=== PATIENT | male | born 1940 | race Hispanic/Latino ===

== ENCOUNTER 2016-05-19 04:13 | Emergency (ER) | payer MEDICARE ==
[2016-05-19 06:10] VITALS: O2SAT 94
[2016-05-19 06:38] VITALS: TEMP 99.7
--- NOTE | 2016-05-19 06:39 | ED.PDOC ---
History of Present Illness - General Chief Complaint: Abdominal Pain Stated Complaint: VOMITING Time Seen by Provider: 05/19/16 06:05 Source: patient, RN notes reviewed, Vital Signs reviewed, family Exam Limitations: other - poor historians - History of Present Illness Initial Comments: This 76 y/o male has complaints of abdominal pain with nausea and vomiting x 1 day. The family has had a stomach bug going around with vomiting and diarrhea. I get conflicting stories from he and his family. He has some abdominal pain which is generalized and mild. He reports that his heartbeat was fast and he was worried about it. He has a history of afib. He has vomited x 1 today. He has been sleeping more than usual. He denies chest pain or shortness of breath. Timing/Duration: 24 hours Severity: mild Improving Factors: nothing Worsening Factors: eating Associated Symptoms: loss of appetite, malaise, nausea/vomiting, weakness Allergies/Adverse Reactions: Allergies Sulfa Drugs Allergy (Unknown, Verified 10/15/15 11:04) Home Medications: Ambulatory Orders Amantadine HCl 100 mg PO BID 07/30/12 Carbidopa/Levodopa 50/200 Cr [Sinemet Cr] 1 tab PO BID 07/30/12 Furosemide 40 mg PO DAILY 07/30/12 Omeprazole 20 mg PO BEDTIME 07/30/12 Potassium Chloride Tab [K-Dur] 10 meq PO DAILY 07/30/12 Saw [place] (Serenoa Repens) [Saw [place]] 160 mg PO BEDTIME 07/30/12 Tamsulosin [Flomax] 0.4 mg PO DAILY 07/30/12 Finasteride [Proscar] 5 mg PO BEDTIME 01/20/13 Dexlansoprazole [Dexilant] 60 mg PO DAILY 04/29/15 ALPRAZolam [Xanax] 1 mg PO BID 10/15/15 Aspirin [Aspirin Adult Low Dose] 81 mg PO BEDTIME 10/15/15 Propranolol LA [Inderal LA] 20 mg PO BEDTIME 03/09/16 Acetaminophen W/ Codeine [Tylenol W/ CODEINE #3] 1 ea PO QID PRN 05/19/16 Ondansetron [Zofran Odt] 4 mg PO Q8H PRN #10 tab 05/19/16 Temazepam 7.5 mg PO 05/19/16 Review of Systems - Review of Systems Constitutional: States: malaise, weakness EENTM: States: no symptoms reported Respiratory: States: no symptoms reported Cardiology: States: palpitations Gastrointestinal/Abdominal: States: abdominal pain, nausea, vomiting Genitourinary: States: hematuria - Not currently Musculoskeletal: States: muscle pain Skin: States: no symptoms reported Neurological: States: tremors, weakness Endocrine: States: no symptoms reported Hematologic/Lymphatic: States: no symptoms reported All other Systems: Reviewed and Negative Past Medical History (General) - Patient Medical History Hx Seizures: No Hx Stroke: No Hx Asthma: No Hx of COPD: Yes Hx Cardiac Disorders: Yes - A-fib Hx Congestive Heart Failure: No Hx Pacemaker: No Hx Hypertension: No Hx Diabetes: No Hx Gastroesophageal Reflux: Yes Hx Cancer: No Hx of HIV: No Hx Hepatitis C: No Hx MRSA: No Surgical History: appendectomy, cholecystectomy, other - Vaccination History Hx Tetanus, Diphtheria Vaccination: No Hx Influenza Vaccination: No Hx Pneumococcal Vaccination: Yes - Social History Hx Tobacco Use: Yes Hx Chewing Tobacco Use: No Hx Alcohol Use: No Hx Substance Use: No Hx Depression: No Hx Physical Abuse: No Hx Emotional Abuse: No Hx Suspected Abuse: No Family Medical History - Family History Father Family History: Unknown Living Status: Cause of : pneumonia Hx Family;Other: Parkinson's Physical Exam - Physical Exam General Appearance: Alert, Comfortable, No apparent distress Eye Exam: bilateral normal Ears, Nose, Throat: hearing grossly normal, normal ENT inspection Respiratory: lungs clear, normal breath sounds, no respiratory distress, no accessory muscle use Cardiovascular/Chest: no edema, no murmur, irregularly irregular Gastrointestinal/Abdominal: normal bowel sounds, non tender, soft, no organomegaly Neurologic: alert, normal mood/affect, oriented x 3 Skin Exam: pallor Progress - Progress Progress: 05/19/16 07:13 Patient remained stable throughout his stay. His hemoglobin has decreased, however it is not currently at a level that requires transfusion. Warnings given to he and his family to return for any rapid heart rate or dizziness, or any worsening of symptoms, for re-evaluation. Patient is to follow up with his PCP in one day. - Results/Orders Results/Orders: 05/19/16 05/19/16 05/19/16 04:24 05:21 06:00 Temperature 99.4 F Pulse Rate [LA] 98 H 96 H 91 H Respiratory 20 16 16 Rate Blood Pressure 142/86 151/83 162/76 [LA] O2 Sat by Pulse 98 96 94 L Oximetry 05/19/16 06:30 Temperature 99.7 F H Pulse Rate [LA] 89 Respiratory 16 Rate Blood Pressure 153/78 [LA] O2 Sat by Pulse Oximetry 05/19/16 06:45 EKG STAT 05/19/16 06:56 INFLUENZA A & B BY PCR Stat Laboratory Results WBC 4.6 K/mm3 (4.8-10.8) L 05/19/16 04:15 RBC 3.60 M/mm3 (4.70-6.10) L 05/19/16 04:15 Hgb 8.6 gm/dL (14.0-18.0) L 05/19/16 04:15 Hct 27.6 % (42.0-52.0) L 05/19/16 04:15 MCV 76.6 fl (80.0-94.0) L 05/19/16 04:15 MCH 24.0 pg (27.0-31.0) L 05/19/16 04:15 MCHC 31.3 g/dL (33.0-37.0) L 05/19/16 04:15 RDW 15.7 % (11.5-14.5) H 05/19/16 04:15 Plt Count 256 K/mm3 (130-400) 05/19/16 04:15 MPV 8.2 fl (7.40-10.4) 05/19/16 04:15 Absolute Neuts (auto) 3.80 K/uL (1.8-6.8) 05/19/16 04:15 Absolute Lymphs (auto) 0.40 K/uL (1.0-3.4) L 05/19/16 04:15 Absolute Monos (auto) 0.20 K/uL (0.2-0.8) 05/19/16 04:15 Absolute Eos (auto) 0.10 K/uL (0.0-0.4) 05/19/16 04:15 Absolute Basos (auto) 0.00 K/uL (0.0-0.1) 05/19/16 04:15 Neutrophils % 82.2 % (42.0-78.0) H 05/19/16 04:15 Lymphocytes % 9.6 % (20.0-50.0) L 05/19/16 04:15 Monocytes % 5.4 % (2.0-9.0) 05/19/16 04:15 Eosinophils % 2.3 % (1.0-5.0) 05/19/16 04:15 Basophils % 0.5 % (0.0-2.0) 05/19/16 04:15 Normal RBC Morphology 2+hypochromia 1+aniso 1+microcytosis 1+poikilocytosis 05/19/16 04:15 Normal RBC Morphology 2+hypochromia 1+aniso 1+microcytosis 1+poikilocytosis 05/19/16 04:15 Normal RBC Morphology 2+hypochromia 1+aniso 1+microcytosis 1+poikilocytosis 05/19/16 04:15 Normal RBC Morphology 2+hypochromia 1+aniso 1+microcytosis 1+poikilocytosis 05/19/16 04:15 Sodium 142 mmol/L (135-145) 05/19/16 04:15 Potassium 3.8 mmol/L (3.6-5.0) 05/19/16 04:15 Chloride 109 mmol/L (101-111) 05/19/16 04:15 Carbon Dioxide 24 mmol/L (21-31) 05/19/16 04:15 Anion Gap 12.8 (12-18) 05/19/16 04:15 BUN 21 mg/dL (7-18) H 05/19/16 04:15 Creatinine 1.23 mg/dL (0.6-1.3) 05/19/16 04:15 BUN/Creatinine Ratio 17.1 (10-20) 05/19/16 04:15 Random Glucose 115 mg/dL (70-105) H 05/19/16 04:15 Serum Osmolality 287.0 mOsm/L (275-295) 05/19/16 04:15 Calcium 9.0 mg/dL (8.4-10.2) 05/19/16 04:15 Total Bilirubin 0.7 mg/dL (0.2-1.0) 05/19/16 04:15 AST 18 IU/L (10-42) 05/19/16 04:15 ALT 13 IU/L (10-60) 05/19/16 04:15 Alkaline Phosphatase 146 IU/L (42-121) H 05/19/16 04:15 Serum Total Protein 7.6 gm/dL (6.4-8.2) 05/19/16 04:15 Albumin 4.0 g/dl (3.2-5.5) 05/19/16 04:15 Globulin 3.6 gm/dL (2.3-3.5) H 05/19/16 04:15 Albumin/Globulin Ratio 1.1 (1.1-1.9) 05/19/16 04:15 Lipase 27 U/L (22-51) 05/19/16 04:15 Urine Color Yellow (Yellow) 05/19/16 05:10 Urine Appearance Clear (Clear) 05/19/16 05:10 Urine pH 6.0 (4.5-7.8) 05/19/16 05:10 Ur Specific [place] 1.020 (1.005-1.030) 05/19/16 05:10 Urine Protein Trace mg/dL 05/19/16 05:10 Urine Glucose (UA) Negative mg/dL (Negative) 05/19/16 05:10 Urine Ketones Negative mg/dL (NEGATIVE) 05/19/16 05:10 Urine Blood Trace-intact (Negative) H 05/19/16 05:10 Urine Nitrite Negative 05/19/16 05:10 Urine Bilirubin Negative (NEGATIVE) 05/19/16 05:10 Urine Urobilinogen 0.2 mg/dL (0.2-1.0) 05/19/16 05:10 Ur Leukocyte Esterase Negative (Negative) 05/19/16 05:10 Urine RBC 1-3 /hpf 05/19/16 05:10 Urine WBC 0-1 /hpf 05/19/16 05:10 Ur Epithelial Cells 0-1 /hpf 05/19/16 05:10 Urine Bacteria Rare 05/19/16 05:10 - EKG/XRAY/CT EKG: Atrial, Fibrillation, no ST T wave changes, Changed from - 01/15/2016 - now afib, rate controlled Comments: 96BPM, PVCs, NML axis, Interpretation: afib, rate controlled XRAY: abdomen Xray Comments: no evidence of obstruction Departure - Departure Clinical Impression: Gastroenteritis Abdominal pain Qualifiers: Abdominal location: generalized Qualifier Code: (R10.84) Generalized abdominal pain Anemia Qualifiers: Anemia type: unspecified type Qualifier Code: (D64.9) Anemia, unspecified Time of Disposition: 07:16 Disposition: Discharge to Home or Self Care Condition: Good Departure Forms: ED Discharge - Pt. Copy, Patient Portal Self Enrollment Instructions: DI for Abdominal Pain-Adult, DI for Vomiting -- Adult, Nausea and Vomiting-Adult, Anemia Diet: bland diet Referrals: Michael Kemp MD [Primary Care Provider] - 1-2 Days (Patient with Hb of 8.6) Prescriptions: Ondansetron [Zofran Odt] 4 mg PO Q8H PRN #10 tab PRN Reason: Nausea/Vomiting Home Medications: Ambulatory Orders Amantadine HCl 100 mg PO BID 07/30/12 Carbidopa/Levodopa 50/200 Cr [Sinemet Cr] 1 tab PO BID 07/30/12 Furosemide 40 mg PO DAILY 07/30/12 Omeprazole 20 mg PO BEDTIME 07/30/12 Potassium Chloride Tab [K-Dur] 10 meq PO DAILY 07/30/12 Saw [place] (Serenoa Repens) [Saw [place]] 160 mg PO BEDTIME 07/30/12 Tamsulosin [Flomax] 0.4 mg PO DAILY 07/30/12 Finasteride [Proscar] 5 mg PO BEDTIME 01/20/13 Dexlansoprazole [Dexilant] 60 mg PO DAILY 04/29/15 ALPRAZolam [Xanax] 1 mg PO BID 10/15/15 Aspirin [Aspirin Adult Low Dose] 81 mg PO BEDTIME 10/15/15 Propranolol LA [Inderal LA] 20 mg PO BEDTIME 03/09/16 Acetaminophen W/ Codeine [Tylenol W/ CODEINE #3] 1 ea PO QID PRN 05/19/16 Ondansetron [Zofran Odt] 4 mg PO Q8H PRN #10 tab 05/19/16 Temazepam 7.5 mg PO 05/19/16 Additional Instructions: Follow up for any worsening of symptoms.
[2016-05-19] MEDS ORDERED: ACETAMINOPHEN W/COD #3 TAB 1 EA TAB PO ONE ×2 (06:41)
[2016-05-19 07:44] VITALS: BP 146/72
--- NOTE | 2016-05-23 14:09 | RAD ---
Clinical history: MAIN.Sex: Male.: 1940. Technique: Supine view of the abdomen. Findings: There is distention of the stomach. There are no dilated loops of small bowel. Cholecystectomy clips are noted. There is no opaque calculus. There are changes of a left hip arthroplasty. Impression: Nonobstructing bowel gas pattern. Electronically signed by: Giuliano Tabor MD 05/19/2016 5:58 AM MICROBIAL SPECIALIST
== END 2016-05-19 07:44 | disposition home or self-care (01) ==
LOC: ER 04:13
DX: K52.9 Noninfective gastroenteritis and colitis, unspecified (principal); D64.9 Anemia, unspecified; Z88.2 Allergy status to sulfonamides; J44.9 Chronic obstructive pulmonary disease, unspecified; I48.91 Unspecified atrial fibrillation; K21.9 Gastro-esophageal reflux disease without esophagitis; Z79.82 Long term (current) use of aspirin; Z79.899 Other long term (current) drug therapy; Z87.891 Personal history of nicotine dependence

== ENCOUNTER 2016-05-21 16:45 | Observation (INO) | payer MEDICARE ==
--- NOTE | 2016-05-21 16:53 | HP ---
SUPERVISING PHYSICIAN: Rigo Powell MD CHIEF COMPLAINT: Weakness. HISTORY OF PRESENT ILLNESS: Mr. Landon is a 76-year-old, male patient who initially presented to the Emergency Department on 05/19/16 with complaints of abdominal pain and nausea. He had a workup in the Emergency Department and his hemoglobin and hematocrit at that time was found to be 8.6 and 27.6. He was discharged home with diagnosis of gastroenteritis with no new prescriptions and told to followup with his primary care physician. Today, he was seen in followup in the clinic. Repeat laboratory was done. Hemoglobin and hematocrit then showed 7.3 and 24.9. He also had an H. pylori breath test done that was positive. His last upper GI series was done in [address] Georges and last colonoscopy was noted to be in 2010. His hemoglobin was reported as normal in November and he had normal colonoscopy on 01/24/16 and was started on Dexilant. He does have a history of atrial fibrillation that is controlled and just saw his assistant to the director, Dr. Sagastume, today. He was on warfarin in the past, but it had been discontinued. Currently, he is on no anticoagulation other than low dose aspirin. An electrocardiogram done by Dr. Sagastume in the clinic today showed atrial fibrillation with controlled ventricular rate of 63. The patient was felt to be clinically stable, but the anemia was of concern. He was then reevaluated by Dr. Kemp. The findings were called to Dr. Georges, his limousine driver, who suggested the patient be admitted to the hospital and transfuse 2 units of packed red blood cells and made NPO tonight with anticipation of doing an upper GI series in the morning. The patient was directly admitted to the hospital in stable condition. PAST MEDICAL HISTORY: 1. Hypertension. 2. Parkinson's disease. 3. Insomnia. 4. Anemia. 5. Paroxysmal atrial fibrillation, currently only on aspirin. 6. Hyperlipidemia. 7. Chronic obstructive pulmonary disease. 8. Coronary atherosclerotic disease. PAST SURGICAL HISTORY: 1. Appendectomy. 2. Cholecystectomy. 3. Fusion of L5 through S1. 4. Left hip fracture repair. 5. Last EGD was 01/24/16, normal, performed by Dr. Georges. HOME MEDICATIONS: 1. Temazepam 7.5 mg. 2. Flomax 0.4 mg daily. 3. Saw [place] 160 mg at bedtime. 4. Inderal 20 mg at bedtime. 5. Potassium chloride 10 mEq daily. 6. Zofran 4 mg q.8h. p.r.n. 7. Omeprazole 20 mg daily at bedtime. 8. Lasix 40 mg daily. 9. Proscar 5 mg at bedtime. 10. Dexilant 60 mg daily. 11. Sinemet CR 1 tablet twice daily. 12. Aspirin 81 mg at bedtime. 13. Amantadine HCL 100 mg twice daily. 14. Tylenol with codeine No 3 1 q.i.d. p.r.n. for pain. 15. Xanax 1 mg twice daily. ALLERGIES: SULFA DRUGS. FAMILY HISTORY: Noncontributory. SOCIAL HISTORY: The patient is retired, former [employer]. He is . He has 5 children. He has never smoked. He denies any alcohol or illicit drug use. REVIEW OF SYSTEMS: CONSTITUTIONAL: Denies any fevers, chills, or weight change. HEENT: Negative for ear pain, frequent rhinorrhea, sore throat. CARDIOVASCULAR: Denies chest pain, orthopnea, or pedal edema. RESPIRATORY: Negative for recent cough or dyspnea. GASTROINTESTINAL: Denies abdominal pain, constipation, diarrhea, or nausea, but was seen 2 days ago for nausea, vomiting and abdominal pain. MUSCULOSKELETAL: Positive for chronic back pain. NEUROLOGIC: Negative for ataxia, headaches. He does have a tremor related to Parkinson's disease. PHYSICAL EXAMINATION: VITAL SIGNS: Temperature 97.8. Pulse 68. Blood pressure 133/70. Respirations 20. O2 saturation 99% on room air. Admission weight 79.5 kg. GENERAL: The patient is alert, in no acute distress, appears well-nourished, well-hydrated. HEENT: Tympanic membranes clear bilaterally. Oropharynx is pink, moist without any lesions. NECK: No jugular venous distention noted. CHEST: Lungs clear to auscultation bilaterally without any rhonchi, wheezes, or rales. CARDIOVASCULAR: Slightly irregular rate and rhythm without any appreciable murmurs, gallops, or rubs. ABDOMEN: Soft, nontender. Hyperactive bowel sounds. NEUROLOGIC: He does have a tremor secondary to Parkinson's, but cranial nerves II-XII are grossly intact. Facial features are symmetrical. Extraocular movements are within normal limits. There is no nystagmus. LABORATORY: White count 3.1, hemoglobin 7.4, hematocrit 24.0, platelet count 215,000, differential with no left shift. Chemistries show sodium 141, potassium 4.1, BUN 23, creatinine 1.25, glucose 99. ALT and AST both within normal limits. Alkaline phosphatase elevated at 125. BNP elevated at 256. H. pylori breath test positive performed in the clinic lab. Occult blood pending. RADIOLOGY: No current radiographic studies available. ASSESSMENT: 1. Anemia with acute loss with the patient being hemodynamically stable with a positive Helicobacter pylori breath test. Unknown etiology. 2. Parkinson's disease. 3. Hypertension. 4. History of insomnia. PLAN: The patient was directly admitted to the hospital and placed in observation to have 2 units of packed red blood cells transfused tonight. He will have Lasix 20 mg after the second unit and he was premedicated with Benadryl and Tylenol. He will be made NPO tonight. He will see Dr. Georges in the morning for evaluation and consultation. Anticipate length of stay to be 1 to 2 days. Until then, we will continue to monitor the patient closely and treat appropriately. #[id number] [facility]
[2016-05-21] MEDS ORDERED: ACETAMINOPHEN 325 MG TAB PO PRN (17:47)
[2016-05-21] MEDS ORDERED: SODIUM CHLORIDE 0.9% (FLUSH) 10 ML SYG IV PRN (17:47)
[2016-05-21] MEDS ORDERED: FUROSEMIDE INJ 20 MG/2 ML VIAL IV ONE (17:52)
[2016-05-21] MEDS ORDERED: diphenhydrAMINE HCL 50 MG/ML VIAL IV ONE (17:52)
[2016-05-21] MEDS ORDERED: ACETAMINOPHEN 325 MG TAB PO ONE (17:52)
[2016-05-21] MEDS ORDERED: SODIUM CHLORIDE 0.9% 500ML 500 ML IVS SCH (18:00)
[2016-05-21] MEDS ORDERED: IV SET AND CAP CHANGE INJ INJ SCH (18:00)
[2016-05-21] MEDS ORDERED: ACETAMINOPHEN W/COD #3 TAB 1 EA TAB PO PRN (23:51)
--- NOTE | 2016-05-22 00:01 | PCM.CORE ---
Physician DVT/VTE - Contraindications Medication Contraindication: Medical Contraindication - Possible GI Bleed - Nurse DVT Assessment & Total Each Risk Factor Represents 2 Points: Age 60-74 Each Risk Factor is 1 Point: Varicose Veins/Edema Legs, Obesity (BMI >25) DVT Assessment Score: 4 - 5 or more Very High Risk Treatments: Early Ambulation *, Sequential Compression Device
[2016-05-22] MEDS ORDERED: LACTATED RINGERS 1,000 ML ONE (10:21)
--- NOTE | 2016-05-22 10:54 | OP ---
DATE OF PROCEDURE: 05/22/16 PREOPERATIVE DIAGNOSIS: 1. Acute anemia, hemoglobin 7, possible active GI blood loss. POSTOPERATIVE DIAGNOSIS: 1. Normal upper GI tract. No blood seen up to the third part of the duodenum. PROCEDURE: 1. Esophagogastroduodenoscopy. SURGEON: Farhat Georges MD. SEDATION: Monitored anesthesia care. DESCRIPTION OF PROCEDURE: This gentleman has advanced Parkinson's disease. With the patient under sedation, the endoscope was introduced. The posterior pharynx appeared normal. Esophagus unremarkable. Normal EG junction. No hiatal hernia. The esophagus showed no evidence of esophageal varices, esophagitis, or ulceration. Normal cardia, fundus, body, antrum, and pylorus. No evidence of gastritis, angiodysplasia or ulcer. No blood seen in the entire stomach. The first, second and third part of the duodenum are all normal. No evidence of duodenal ulcer disease or any celiac disease. IMPRESSION: 1. Totally normal upper endoscopy. No sign of bleeding identified. 2. Source of blood loss or anemia not related to any upper GI source of bleeding. #[id number] cc: MD Farhat Graves MD MTDD
[2016-05-22 11:14] VITALS: TEMP 98
[2016-05-22] MEDS ORDERED: PROPOFOL 200 MG/20 ML VIAL IV ONE (12:00)
[2016-05-22] MEDS ORDERED: SODIUM CHLORIDE 0.9% 10 ML VIAL INJ PRN (12:12)
--- NOTE | 2016-05-22 12:39 | CT ---
EXAM DESCRIPTION: CT ABDOMEN PELVIS WITHOUT IV CONTRAST CLINICAL HISTORY: poss GI bleed, anemia COMPARISON: December 21, 2013 TECHNIQUE: CT of the abdomen and Pelvis was performed without IV contrast. Oral contrast was given prior to this exam period FINDINGS: There are trace bilateral pleural effusions. No pneumoperitoneum, ascites or adenopathy. There are mural calcifications in the abdominal aorta without aneurysm period there is no hiatal hernia period no gastric wall thickening is seen period there are no dilated small bowel loops. Does appear wall and fold thickening involving a short segment of the jejunum just distal to the ligament of Treitz, but this may be at least partially related to suboptimal distention period otherwise, visualized small bowel loops are unremarkable. The terminal ileum and ileocecal junction are unremarkable. There is no colonic wall thickening or pericolonic inflammation period the prostate is at the upper limits of normal size. There is no bladder wall thickening. The gallbladder is surgically absent. The liver, spleen, pancreas, adrenals and kidneys are unremarkable for noncontrast technique period streak artifact from patient's left hip prosthesis slightly limits evaluation of the left side of the pelvis period there is no suspicious bone lesion. Degenerative and postoperative changes are noted in the lumbar spine at multiple levels. There is a tiny bone island in the left sacral wing, stable from December, period IMPRESSION: Wall and fold thickening involving a short segment of the jejunum just distal to the ligament of Treitz, nonspecific. This may be least partially related to suboptimal distention. Given provided history and absence of additional explanation, focal infectious or inflammatory enteritis should also be considered. Neoplasm is considered less likely but not completely excluded. Trace bilateral pleural effusions, nonspecific. Otherwise unremarkable exam. Electronically signed by: Alli Nance DO 05/22/2016 12:37
[2016-05-22 16:11] VITALS: BP 169/88; O2SAT 97
[2016-05-22] MEDS ORDERED: SODIUM CHLORIDE 0.9% (FLUSH) 10 ML SYG IV SCH (21:00)
--- NOTE | 2016-05-22 21:13 | DS ---
DISCHARGE DIAGNOSIS: 1. Acute anemia with microcytic hypochromic presentation requiring 2 units of packed red blood cells to improve with symptoms also improved. 2. Chronic atrial fibrillation with good rate control and on aspirin for anticoagulation. 3. History of Parkinson's disease on oral therapy. 4. History of hypertension. 5. History of insomnia. 6. History of chronic obstructive pulmonary disease. 7. History of coronary artery disease. HISTORY OF PRESENT ILLNESS: Consultation was performed with Dr. Georges who performed an upper endoscopy procedure on the day of discharge. Results were normal and this assisted with ongoing etiology delineation as to why his anemic state and also why he was presenting with abdominal discomfort. In the clinic, he also had a breath analysis test which was positive for H. pylori but on endoscopy there was no evidence of gastritis or duodenitis or ulcers noted. The patient is also followed by Dr. Sagastume for his atrial fibrillation currently on aspirin coagulation. Dr. Kemp is his primary care provider. LABORATORY: Hemoglobin initially was 7.4 up to 9.4 after 2 units of packed red blood cells were infused. White count was up to 3,800 with 48% neutrophils. Red blood cell indices show microcytic hypochromic indices with normal platelets. Chemistry showed potassium 3.4, BUN 24, creatinine 1.37, glucose 89 , calcium 8.9. Alkaline phosphatase slightly elevated at 136, Beta natriuretic peptide 256, albumin 3.7. No culture were obtained. After the endoscopy, Dr. Georges ordered an abdominal/pelvic CT scan with oral contrast with special attention to looking at the small bowel. There was some wall thickening involving a short segment of the jejunum just distal to the ligament of Treitz beyond the duodenum which may have been related to suboptimal distention, but also could also be a localized area of enteritis, etc. HOSPITAL COURSE: The patient was eating quite well. He was able to ambulate. Was able to assist his family in their ongoing care of him at the time of his discharge. He very much wished to continue with outpatient followup with Dr. Kemp in the clinic. PLAN: Discharge home and to have followup with Dr. Kemp in the clinic next week. Dr. Kemp will also repeat a CBC in the next 2 to 3 weeks to have further followup of the anemia. Eat a nutritious diet. Try multivitamins with B complex. Drink plenty of fluids. Return if not improving. #[id number] [facility]
== END 2016-05-22 19:10 | disposition home health service (06) ==
LOC: INTOOBSV 16:45 → MS 16:45 → UNDOADMIN 16:52 → MS 16:52
PROVIDERS: ADMIT Family Medicine; ATTEND Emergency Medicine
DX: D50.9 Iron deficiency anemia, unspecified (principal); B96.81 Helicobacter pylori [H. pylori] as the cause of diseases classified elsewhere; I48.0 Paroxysmal atrial fibrillation; G20 Parkinson's disease; I10 Essential (primary) hypertension; G47.00 Insomnia, unspecified; J44.9 Chronic obstructive pulmonary disease, unspecified; I25.10 Atherosclerotic heart disease of native coronary artery without angina pectoris; E78.5 Hyperlipidemia, unspecified; Z79.82 Long term (current) use of aspirin; Z79.899 Other long term (current) drug therapy; Z88.2 Allergy status to sulfonamides; Z90.49 Acquired absence of other specified parts of digestive tract; Z98.1 Arthrodesis status
CPT/HCPCS: 00740; 36415 ×3; 36430; 43235; 74176; 80053 ×2; 83880; 85025 ×2; 86850; 86900; 86901; 86922; 94760 ×2; 96374; 96375; G0378; J1200; J1940; J3490; J7040; J7120; P9016 ×2

== ENCOUNTER 2016-06-17 10:40 | Emergency (ER) | payer MEDICARE ==
--- NOTE | 2016-06-17 10:59 | ED.PDOC ---
History of Present Illness - General Chief Complaint: Trauma Stated Complaint: Right hip pain after fall Time Seen by Provider: 06/17/16 10:56 Source: patient, RN notes reviewed, Vital Signs reviewed Exam Limitations: no limitations - History of Present Illness Initial Comments: Patient was getting up from his chair and fell onto the carpeted floor. He is having right hip pain and is concerned that he may have broken his hip. He was brought in by EMS. Timing/Duration: 1-3 hours Severity: mild Improving Factors: rest Worsening Factors: movement, other - Touching Associated Symptoms: denies symptoms Allergies/Adverse Reactions: Allergies Sulfa Drugs Allergy (Unknown, Verified 10/15/15 11:04) Home Medications: Ambulatory Orders Amantadine HCl 100 mg PO BID 07/30/12 Carbidopa/Levodopa 50/200 Cr [Sinemet Cr] 1 tab PO DAILY 07/30/12 Furosemide 40 mg PO DAILY 07/30/12 [place] (Serenoa Repens) [Saw [place]] 160 mg PO BEDTIME 07/30/12 Finasteride [Proscar] 5 mg PO DAILY 01/20/13 Dexlansoprazole [Dexilant] 60 mg PO DAILY 04/29/15 ALPRAZolam [Xanax] 1 mg PO BID 10/15/15 Propranolol LA [Inderal LA] 60 mg PO BEDTIME 03/09/16 Acetaminophen W/ Codeine [Tylenol W/ CODEINE #3] 1 ea PO QID PRN 05/19/16 Aspirin 325 mg PO DAILY 05/22/16 Sxhwhjtzz-Uqhplpul-Nimnuprouf [Carbidopa/Levodopa/Entaca 50-200-200 mg] 0.5 tab PO BEDTIME 05/22/16 Dexlansoprazole [Dexilant] 60 mg PO DAILY 05/22/16 Melatonin 3 mg PO BEDTIME 05/22/16 Non-Formulary Medication 0.4 mg PO DAILY 05/22/16 Sucralfate Tab [Carafate Tab] 1 gm PO AC 05/22/16 Review of Systems - Review of Systems Constitutional: States: no symptoms reported EENTM: States: no symptoms reported Respiratory: States: no symptoms reported Cardiology: States: no symptoms reported Gastrointestinal/Abdominal: States: no symptoms reported Genitourinary: States: no symptoms reported Musculoskeletal: States: see HPI Skin: States: no symptoms reported Neurological: States: other - Dizziness but this happens frequently Endocrine: States: no symptoms reported Past Medical History (General) - Patient Medical History Hx Seizures: No Hx Stroke: No Hx Asthma: No Hx of COPD: Yes Hx Cardiac Disorders: Yes - A-fib Hx Congestive Heart Failure: No Hx Pacemaker: No Hx Hypertension: No Hx Diabetes: No Hx Gastroesophageal Reflux: Yes Hx Cancer: No Hx of HIV: No Hx Hepatitis C: No Hx MRSA: No - Vaccination History Hx Tetanus, Diphtheria Vaccination: No Hx Influenza Vaccination: No Hx Pneumococcal Vaccination: Yes - Social History Hx Tobacco Use: Yes Hx Chewing Tobacco Use: No Hx Alcohol Use: No Hx Substance Use: No Hx Depression: No Hx Physical Abuse: No Hx Emotional Abuse: No Hx Suspected Abuse: No Family Medical History - Family History Father Family History: Unknown Living Status: Cause of : pneumonia Hx Family;Other: Parkinson's Physical Exam - Physical Exam General Appearance: Alert, Comfortable, Frail, No apparent distress Neck: non-tender, full range of motion, supple Respiratory: chest non-tender Cardiovascular/Chest: normal peripheral pulses, regular rate, rhythm, no edema, no gallop, no JVD, no murmur Peripheral Pulses: dorsalis pedis,right: 2+, dorsalis pedis,left: 2+ Gastrointestinal/Abdominal: normal bowel sounds, non tender, soft Extremity: normal capillary refill, pelvis stable, other - Right hip is tender laterally to palpation Neurologic: no motor/sensory deficits, alert, normal mood/affect, oriented x 3 Skin Exam: normal color, warm/dry Lymphatic: no adenopathy Progress - Progress Progress: 06/17/16 12:04 06/17/16 12:44 Attempted 3X to get a hold of Dr. Palmer with no response. Will attempt transfer to [facility] in [place]. 06/17/16 14:[address] Saez - Judith and Dr. Warner - who have accepted patient. - Results/Orders Results/Orders: Laboratory Tests 06/17/16 06/17/16 11:55 13:13 WBC 5.0 RBC 4.33 L Hgb 10.7 L Hct 34.3 L MCV 79.3 L MCH 24.7 L MCHC 31.1 L RDW 19.3 H Plt Count 217 MPV 8.3 Absolute Neuts (auto) 3.40 Absolute Lymphs (auto) 0.90 L Absolute Monos (auto) 0.40 Absolute Eos (auto) 0.30 Absolute Basos (auto) 0.00 Neutrophils % 67.0 Lymphocytes % 18.6 L Monocytes % 7.5 Eosinophils % 6.1 H Basophils % 0.8 Sodium 141 Potassium 4.0 Chloride 107 Carbon Dioxide 27 Anion Gap 11.0 L BUN 21 H Creatinine 1.51 H BUN/Creatinine Ratio 13.9 Random Glucose 97 Serum Osmolality 284.1 Calcium 9.0 Total Bilirubin 0.7 AST 16 ALT 9 L Alkaline Phosphatase 128 H Serum Total Protein 7.2 Albumin 3.6 Globulin 3.6 H Albumin/Globulin Ratio 1.0 L - EKG/XRAY/CT XRAY: hip - Right - Impacted Femoral neck fracture. Departure - Departure Clinical Impression: Fracture of right hip Time of Disposition: 15:06 Disposition: Transfer to Hospital Condition: Good Departure Forms: ED Discharge - Pt. Copy, Patient Portal Self Enrollment Home Medications: Ambulatory Orders Amantadine HCl 100 mg PO BID 07/30/12 Carbidopa/Levodopa 50/200 Cr [Sinemet Cr] 1 tab PO DAILY 07/30/12 Furosemide 40 mg PO DAILY 07/30/12 [place] (Serenoa Repens) [Saw [place]] 160 mg PO BEDTIME 07/30/12 Finasteride [Proscar] 5 mg PO DAILY 01/20/13 Dexlansoprazole [Dexilant] 60 mg PO DAILY 04/29/15 ALPRAZolam [Xanax] 1 mg PO BID 10/15/15 Propranolol LA [Inderal LA] 60 mg PO BEDTIME 03/09/16 Acetaminophen W/ Codeine [Tylenol W/ CODEINE #3] 1 ea PO QID PRN 05/19/16 Aspirin 325 mg PO DAILY 05/22/16 Wbresrwzy-Hidrhlqq-Uvsnhxjnfo [Carbidopa/Levodopa/Entaca 50-200-200 mg] 0.5 tab PO BEDTIME 05/22/16 Dexlansoprazole [Dexilant] 60 mg PO DAILY 05/22/16 Melatonin 3 mg PO BEDTIME 05/22/16 Non-Formulary Medication 0.4 mg PO DAILY 05/22/16 Sucralfate Tab [Carafate Tab] 1 gm PO AC 05/22/16 Transfer to Outside Facility - Transfer Information Accepting Provider:: Dr. Warner Accepting Facility: [place] Reason for Transfer: required specialist not available
--- NOTE | 2016-06-17 11:57 | RAD ---
EXAM DESCRIPTION: Hip,Right 2 Views CLINICAL HISTORY: 76 years Male, Pain s/p fall COMPARISON: None. TECHNIQUE: AP/frog lateral FINDINGS: The exam reveals impacted right femoral neck fracture. The hip is in slight valgus. No further injury is detected. IMPRESSION: Impacted right femoral neck fracture. Electronically signed by: Luigi Benitez MD 06/17/2016 11:56 AM DOOR AND ARRIVAL ATTENDANT
[2016-06-17] MEDS ORDERED: ONDANSETRON INJ 4 MG/2 ML VIAL IV ONE (13:13)
[2016-06-17] MEDS ORDERED: MORPHINE SULFATE INJ 10 MG/ML VIAL IV ONE ×2 (13:13→14:58)
[2016-06-17 14:45] VITALS: O2SAT 98
[2016-06-17 14:49] VITALS: BP 158/87; TEMP 98
== END 2016-06-17 15:15 | disposition short-term general hospital (02) ==
LOC: ER 10:40
DX: S72.001A Fracture of unspecified part of neck of right femur, initial encounter for closed fracture (principal); J44.9 Chronic obstructive pulmonary disease, unspecified; I48.91 Unspecified atrial fibrillation; K21.9 Gastro-esophageal reflux disease without esophagitis; Z87.891 Personal history of nicotine dependence; Z88.2 Allergy status to sulfonamides; Z79.82 Long term (current) use of aspirin; Z79.899 Other long term (current) drug therapy; W19.XXXA Unspecified fall, initial encounter
CPT/HCPCS: 36415; 73502; 80053; 85025; J2270; J2405

== ENCOUNTER → 2016-09-23 | Outpatient (CLI) | payer MEDICARE | END | disposition home or self-care (01) | LOC: BFHH 12:58 | PROVIDERS: ATTEND Family Medicine | DX: N39.0 Urinary tract infection, site not specified (principal); I10 Essential (primary) hypertension; Z12.5 Encounter for screening for malignant neoplasm of prostate; D64.9 Anemia, unspecified | CPT/HCPCS: 80053; 80061; 81001; 84439; 84443; 85025; G0103 ==

== ENCOUNTER 2017-02-18 11:45 | Emergency (ER) | payer MEDICARE ==
[2017-02-18 11:55] VITALS: TEMP 97.3
--- NOTE | 2017-02-18 12:19 | ED.PDOC ---
History of Present Illness - General Chief Complaint: Trauma Stated Complaint: R ribcage discomfort Time Seen by Provider: 02/18/17 12:13 Source: patient Additional Information: PT FELL AT HOME. HAS PARKINSON'S, SLIPPED AND FELL, LANDED ON FLOOR. C/O PAIN TO POST THORAX. - History of Present Illness Timing/Duration: other - 3 DAYS Severity: mild Improving Factors: other - PLEURITIC Associated Symptoms: denies symptoms Allergies/Adverse Reactions: Allergies Sulfa Drugs Allergy (Unknown, Verified 02/18/17 12:00) Home Medications: Ambulatory Orders Amantadine HCl 100 mg PO BID 07/30/12 Carbidopa/Levodopa 50/200 Cr [Sinemet Cr] 1 tab PO BEDTIME 07/30/12 Furosemide 40 mg PO DAILY 07/30/12 Saw [place] (Serenoa Repens) [Saw [place]] 160 mg PO BEDTIME 07/30/12 Finasteride [Proscar] 5 mg PO DAILY 01/20/13 ALPRAZolam [Xanax] 1 mg PO BID 10/15/15 Propranolol LA [Inderal LA] 60 mg PO BEDTIME 03/09/16 Acetaminophen W/ Codeine [Tylenol W/ CODEINE #3] 1 ea PO QID PRN 05/19/16 Rqtpjkkpv-Kkouvgcy-Aasbyarfto [Carbidopa/Levodopa/Entaca 50-200-200 mg] 0.5 tab PO DAILY 05/22/16 Dexlansoprazole [Dexilant] 60 mg PO DAILY 05/22/16 Melatonin 3 mg PO BEDTIME 05/22/16 Non-Formulary Medication 0.4 mg PO DAILY 05/22/16 Sucralfate Tab [Carafate Tab] 1 gm PO AC 05/22/16 Aspirin [Wilbert Low Dose] 81 mg PO DAILY 02/18/17 Indomethacin 50 mg PO TID PRN #14 cap 02/18/17 Review of Systems - Review of Systems Constitutional: Denies: chills, fever EENTM: States: no symptoms reported Respiratory: Denies: cough, short of breath Cardiology: Denies: chest pain, syncope Gastrointestinal/Abdominal: States: no symptoms reported Genitourinary: States: no symptoms reported Musculoskeletal: Denies: back pain, neck pain Skin: States: other - BRUISING Neurological: Denies: numbness, tingling Endocrine: States: no symptoms reported Hematologic/Lymphatic: States: no symptoms reported Past Medical History (General) - Patient Medical History Hx Seizures: No Hx Stroke: No Hx Dementia: No Hx Asthma: No Hx of COPD: Yes Hx Cardiac Disorders: Yes - A-fib Hx Congestive Heart Failure: No Hx Pacemaker: No Hx Hypertension: No Hx Thyroid Disease: No Hx Diabetes: No Hx Gastroesophageal Reflux: Yes Hx Renal Disease: No Hx Cancer: No Hx of HIV: No Hx Hepatitis C: No Hx MRSA: No Surgical History: appendectomy, cholecystectomy, tonsillectomy - Vaccination History Hx Tetanus, Diphtheria Vaccination: No Hx Influenza Vaccination: No Hx Pneumococcal Vaccination: Yes - Social History Hx Tobacco Use: No Hx Chewing Tobacco Use: No Hx Alcohol Use: No Hx Substance Use: No Hx Substance Use Treatment: No Hx Depression: No Hx Physical Abuse: No Hx Emotional Abuse: No Hx Suspected Abuse: No Family Medical History - Family History Father Family History: Unknown Living Status: Cause of : pneumonia Hx Family;Other: Parkinson's Physical Exam - Physical Exam General Appearance: Alert, No apparent distress Eye Exam: bilateral normal Ears, Nose, Throat: hearing grossly normal, normal ENT inspection Neck: non-tender, full range of motion Respiratory: lungs clear, normal breath sounds, no respiratory distress Cardiovascular/Chest: regular rate, rhythm, no murmur, other - SMALL AREA OF ECCHYMOSIS R POST THORAX TTP, NO CREPITUS, NO SUBQ EMPHYSEMA Gastrointestinal/Abdominal: non tender, soft, no organomegaly Back Exam: normal inspection, no vertebral tenderness Extremity: normal range of motion, non-tender, normal inspection Neurologic: no motor/sensory deficits, normal mood/affect, other - PT WITH MOD TO SEVERE PARKINSONIAN'S TREMOR. GAIT NOT TESTED. Skin Exam: normal color, warm/dry Lymphatic: no adenopathy Progress - Progress Progress: 02/18/17 13:15 NAD, PULSE 60 - EKG/XRAY/CT XRAY: chest - NO PTX, NO FX Departure - Departure Clinical Impression: Parkinson disease Chest wall contusion Qualifiers: Encounter type: initial encounter Laterality: right Qualified Code(s): S20.211A - Contusion of right front wall of thorax, initial encounter Time of Disposition: 13:10 Disposition: Discharge to Home or Self Care Departure Forms: ED Discharge - Pt. Copy, Patient Portal Self Enrollment Instructions: DI for Rib Contusion, DI for Trauma Referrals: Michael Kemp MD [Primary Care Provider] - 1-2 Weeks Prescriptions: Indomethacin 50 mg PO TID PRN #14 cap PRN Reason: Pain Home Medications: Ambulatory Orders Amantadine HCl 100 mg PO BID 07/30/12 Carbidopa/Levodopa 50/200 Cr [Sinemet Cr] 1 tab PO BEDTIME 07/30/12 Furosemide 40 mg PO DAILY 07/30/12 Saw [place] (Serenoa Repens) [Saw [place]] 160 mg PO BEDTIME 07/30/12 Finasteride [Proscar] 5 mg PO DAILY 01/20/13 ALPRAZolam [Xanax] 1 mg PO BID 10/15/15 Propranolol LA [Inderal LA] 60 mg PO BEDTIME 03/09/16 Acetaminophen W/ Codeine [Tylenol W/ CODEINE #3] 1 ea PO QID PRN 05/19/16 Fdfguvrnc-Gjshkucw-Rvvbrrezci [Carbidopa/Levodopa/Entaca 50-200-200 mg] 0.5 tab PO DAILY 05/22/16 Dexlansoprazole [Dexilant] 60 mg PO DAILY 05/22/16 Melatonin 3 mg PO BEDTIME 05/22/16 Non-Formulary Medication 0.4 mg PO DAILY 05/22/16 Sucralfate Tab [Carafate Tab] 1 gm PO AC 05/22/16 Aspirin [Wilbert Low Dose] 81 mg PO DAILY 02/18/17 Indomethacin 50 mg PO TID PRN #14 cap 02/18/17
--- NOTE | 2017-02-18 12:59 | RAD ---
EXAM DESCRIPTION: Chest,1 View CLINICAL HISTORY: 76 years Male, FALL WITH PAIN COMPARISON: October 15, 2015 TECHNIQUE: AP portable chest. FINDINGS: A fair inspiration has been achieved with a clear right lung. Linear stranding at the lateral left lung base in retrospect is little changed from prior study and likely represents chronic scarring at the left lateral lung base the aorta is calcified and tortuous. Heart size is normal with normal vascularity. No infiltrates or effusions are seen. IMPRESSION: No acute cardiopulmonary disease. Electronically signed by: Valentin Schafer MD 02/18/2017 12:58 PM CDT
--- NOTE | 2017-02-18 13:03 | RAD ---
EXAM DESCRIPTION: Ribs,Right 2 Views CLINICAL HISTORY: 76 years Male, FALL WITH PAIN COMPARISON: None. FINDINGS: Four views of the right ribs demonstrate no right-sided pneumothorax or hemothorax. No fracture or rib deformity is evident. No destructive process is noted. IMPRESSION: Negative examination. Electronically signed by: Valentin Schafer MD 02/18/2017 1:01 PM CDT
[2017-02-18 13:35] VITALS: BP 148/83; O2SAT 90
== END 2017-02-18 13:30 | disposition home or self-care (01) ==
LOC: ER 11:45
DX: S20.211A Contusion of right front wall of thorax, initial encounter (principal); G20 Parkinson's disease; J44.9 Chronic obstructive pulmonary disease, unspecified; I48.91 Unspecified atrial fibrillation; Z79.82 Long term (current) use of aspirin; Z79.899 Other long term (current) drug therapy; Z88.2 Allergy status to sulfonamides; W01.0XXA Fall on same level from slipping, tripping and stumbling without subsequent striking against object, initial encounter

== ENCOUNTER 2017-05-03 13:19 | Emergency (ER) | payer MEDICARE ==
--- NOTE | 2017-05-03 13:26 | ED.PDOC ---
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 Currently Patient holding right wrist immobilized and c/o pain in right wrist. Mild swelling noted to dorsal aspect of wrist. Also, small abrasion noted to volar aspect of wrist and small abrasion to forearm. - History of Present Illness Occurred: just prior to arrival Pain - Upper Extremity: moderate: Wrist, right Method of Injury: fell Improving Factors: immobilization Worsening Factors: movement Allergies/Adverse Reactions: Allergies Sulfa Drugs Allergy (Unknown, Verified 02/18/17 12:00) Home Medications: Ambulatory Orders Amantadine HCl 100 mg PO BID 07/30/12 Carbidopa/Levodopa 50/200 Cr [Sinemet Cr] 1 tab PO BEDTIME 07/30/12 Furosemide 40 mg PO DAILY 07/30/12 Saw [place] (Serenoa Repens) [Saw [place]] 160 mg PO BEDTIME 07/30/12 Finasteride [Proscar] 5 mg PO DAILY 01/20/13 ALPRAZolam [Xanax] 1 mg PO BID 10/15/15 Propranolol LA [Inderal LA] 60 mg PO BEDTIME 03/09/16 Acetaminophen W/ Codeine [Tylenol W/ CODEINE #3] 1 ea PO QID PRN 05/19/16 Sriygfxvg-Bsvhivup-Yrcchifadr [Carbidopa/Levodopa/Entaca 50-200-200 mg] 0.5 tab PO DAILY 05/22/16 Dexlansoprazole [Dexilant] 60 mg PO DAILY 05/22/16 Melatonin 3 mg PO BEDTIME 05/22/16 Non-Formulary Medication 0.4 mg PO DAILY 05/22/16 Sucralfate Tab [Carafate Tab] 1 gm PO AC 05/22/16 Aspirin [Wilbert Low Dose] 81 mg PO DAILY 02/18/17 Indomethacin 50 mg PO TID PRN #14 cap 02/18/17 Review of Systems - Review of Systems Constitutional: States: no symptoms reported EENTM: States: no symptoms reported Respiratory: States: no symptoms reported Cardiology: States: no symptoms reported Gastrointestinal/Abdominal: States: no symptoms reported Genitourinary: States: no symptoms reported Musculoskeletal: States: see HPI, joint pain - Right Wrist Skin: States: no symptoms reported Neurological: States: see HPI - baseline signs and symptoms related to Parkinson 's Endocrine: States: no symptoms reported Hematologic/Lymphatic: States: no symptoms reported Past Medical History (General) - Patient Medical History Hx Seizures: No Hx Stroke: No Hx Dementia: No Hx Asthma: No Hx of COPD: Yes Hx Cardiac Disorders: Yes - A-fib Hx Congestive Heart Failure: No Hx Pacemaker: No Hx Hypertension: No Hx Thyroid Disease: No Hx Diabetes: No Hx Gastroesophageal Reflux: Yes Hx Renal Disease: No Hx Cancer: No Hx of HIV: No Hx Hepatitis C: No Hx MRSA: No Hx Other PMH: Yes - Parkinson's Disease - Vaccination History Hx Tetanus, Diphtheria Vaccination: No Hx Influenza Vaccination: No Hx Pneumococcal Vaccination: Yes - Social History Hx Tobacco Use: No Hx Chewing Tobacco Use: No Hx Alcohol Use: No Hx Substance Use: No Hx Substance Use Treatment: No Hx Depression: No Hx Physical Abuse: No Hx Emotional Abuse: No Hx Suspected Abuse: No Family Medical History - Family History Father Family History: Unknown Living Status: Cause of : pneumonia Hx Family;Other: Parkinson's Physical Exam - Physical Exam General Appearance: Alert, Comfortable, Frail, No apparent distress - at rest Eyes, Ears, Nose, Throat Exam: PERRL/EOMI, normal ENT inspection Neck: non-tender, full range of motion, supple Cardiovascular/Respiratory: regular rate, rhythm, normal peripheral pulses, no respiratory distress Back Exam: normal inspection Shoulder Exam: normal inspection, non-tender, no evidence of injury, normal ROM Elbow/Forearm Exam: normal inspection, non-tender, no evidence of injury, normal ROM Wrist Exam: abrasions - mild, bone tenderness, limited ROM - due to pain, swelling - mild Hand Exam: normal inspection, non-tender, no evidence of injury, normal ROM Neuro/Tendon: normal sensation, normal motor functions, normal tendon functions - of hand Mental Status: alert, oriented x 3, other - Parkinsonian features present - stable/at baseline Comments: Right upper extremity: Mild swelling noted to dorsal aspect of wrist. Also, small abrasion noted to volar aspect of wrist and small abrasion to forearm. Progress - Progress Progress: 05/03/17 15:03 X-Ray Report: Findings: There is a nondisplaced intra-articular fracture of the distal radial metaphysis with 1 mm articular surface diastases. There is a displaced fracture of the tip of the ulnar styloid process . Healed fracture deformity of the fifth metacarpal. There is diffusely osteopenic appearance of the bones. Scattered degenerative changes are seen at the interphalangeal joints and at the wrist. IMPRESSION: Distal radial and ulnar styloid process fractures. Splint applied - well tolerated. Sling provided. Patient stable for discharge home with instructions to f/u with Ortho as well as strict return precautions. - Results/Orders Results/Orders: 05/03/17 05/03/17 13:36 13:38 Temperature 07676.5 F H 97.5 F L Pulse Rate [ 60 MONITOR] Respiratory 18 Rate Blood Pressure 139/39 [RA] O2 Sat by Pulse 100 Oximetry Procedures - Splinting Right Wrist Hand-Made Type: orthoglass Splint: sugar-tong Pre-Proc Neuro Vasc Exam: normal Post-Proc Neuro Vasc Exam: normal Departure - Departure Clinical Impression: Distal radius fracture, right Qualifiers: Encounter type: initial encounter Fracture type: closed Fracture morphology: other fracture Qualified Code(s): S52.591A - Other fractures of lower end of right radius, initial encounter for closed fracture Time of Disposition: 14:50 Disposition: Discharge to Home or Self Care Condition: Fair Departure Forms: ED Discharge - Pt. Copy, Patient Portal Self Enrollment Instructions: DI for Wrist Fracture Referrals: Michael Kemp MD [Primary Care Provider] - 1-5 Days Jatinder Palmer MD [Active Staff] - 1-5 Days Home Medications: Ambulatory Orders Amantadine HCl 100 mg PO BID 07/30/12 Carbidopa/Levodopa 50/200 Cr [Sinemet Cr] 1 tab PO BEDTIME 07/30/12 Furosemide 40 mg PO DAILY 07/30/12 Saw [place] (Serenoa Repens) [Saw [place]] 160 mg PO BEDTIME 07/30/12 Finasteride [Proscar] 5 mg PO DAILY 01/20/13 ALPRAZolam [Xanax] 1 mg PO BID 10/15/15 Propranolol LA [Inderal LA] 60 mg PO BEDTIME 03/09/16 Acetaminophen W/ Codeine [Tylenol W/ CODEINE #3] 1 ea PO QID PRN 05/19/16 Drwzhtlrf-Qvaebylx-Rnzjifhtwc [Carbidopa/Levodopa/Entaca 50-200-200 mg] 0.5 tab PO DAILY 05/22/16 Dexlansoprazole [Dexilant] 60 mg PO DAILY 05/22/16 Melatonin 3 mg PO BEDTIME 05/22/16 Non-Formulary Medication 0.4 mg PO DAILY 05/22/16 Sucralfate Tab [Carafate Tab] 1 gm PO AC 05/22/16 Aspirin [Wilbert Low Dose] 81 mg PO DAILY 02/18/17 Indomethacin 50 mg PO TID PRN #14 cap 02/18/17 Additional Instructions: Call Dr. Palmer's office to set up an appointment so he can determine if you need a cast. You should be seen by Dr. Palmer this week (No Later Than FridayMay 09). Keep your arm in the splint until seen by Dr. Palmer. Use sling to help with weight of splint as needed. Range of motion at the shoulder and fingers will help maintain good blood supply. At least three or four times a day for 15-20 minutes you should elevate the wrist above the level of the heart and apply an Icepack/Frozen Vegetables to the wrist without getting the splint wet. Ok to take over the counter Advil/Ibuprofen as needed for pain - follow label instructions.
[2017-05-03 13:44] VITALS: BP 139/39; TEMP 97.5; O2SAT 100
--- NOTE | 2017-05-03 13:59 | RAD ---
Procedure: XR WRIST 3 OR MORE VIEWS Exam Date: 05/03/2017 1:26 PM SERVICE CAPTAIN Ordering Provider: Christopher Holland Clinical Indication: fall. Contusion vs fracture Comparison: None Findings: There is a nondisplaced intra-articular fracture of the distal radial metaphysis with 1 mm articular surface diastases. There is a displaced fracture of the tip of the ulnar styloid process . Healed fracture deformity of the fifth metacarpal. There is diffusely osteopenic appearance of the bones. Scattered degenerative changes are seen at the interphalangeal joints and at the wrist. IMPRESSION: Distal radial and ulnar styloid process fractures. Electronically signed by: Zulay Saucedo MD 05/03/2017 1:58 PM SERVICE CAPTAIN
== END 2017-05-03 14:53 | disposition home or self-care (01) ==
LOC: ER 13:19
DX: S52.591A Other fractures of lower end of right radius, initial encounter for closed fracture (principal); G20 Parkinson's disease; I48.91 Unspecified atrial fibrillation; J44.9 Chronic obstructive pulmonary disease, unspecified; W19.XXXA Unspecified fall, initial encounter; Y92.009 Unspecified place in unspecified non-institutional (private) residence as the place of occurrence of the external cause

== ENCOUNTER → 2017-05-09 | Outpatient (CLI) | payer MEDICARE ==
--- NOTE | 2017-05-12 08:16 | RAD ---
EXAM DESCRIPTION: Wrist,Right 3 Views CLINICAL HISTORY: WRIST PAIN COMPARISON: May 03, 2017 IMPRESSION: 3 views of the right wrist demonstrates mildly displaced, intra-articular, impacted fracture of the right distal radius unchanged from previous exam without significant callus formation or healing of the fractures. No interval change in alignment of fracture fragments. Minimally displaced ulnar styloid avulsion fracture is again seen. The osseous structures are diffusely osteopenic. Remote healed fractures of the third and fifth metacarpals are again seen. 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 Electronically signed by: Donavan Bangura MD 05/12/2017 8:15 AM [facility]
== END | disposition home or self-care (01) ==
LOC: RAD 08:46
PROVIDERS: ATTEND Orthopaedic Surgery
DX: M25.531 Pain in right wrist (principal)

== ENCOUNTER → 2017-05-26 | Outpatient (CLI) | payer MEDICARE ==
--- NOTE | 2017-05-26 17:38 | RAD ---
EXAM DESCRIPTION: Wrist,Right 3 Views CLINICAL HISTORY: 77 years, Male, CLOSED FX OF DISTAL END OF RADIUS COMPARISON: May 09, 2017 TECHNIQUE: AP/ lateral/ oblique views of the right wrist. FINDINGS: Nondisplaced chip fracture of the ulnar styloid is noted as well as a sclerotic impacted intra-articular fracture of the distal radius with increasing callous formation in the endosteal sclerosis. Mild dorsal angulation of the distal radius is unchanged from prior study. The fracture lines are less discrete. Healed oblique fractures of the third metacarpal shaft distally in the fifth metacarpal shaft proximally are again noted. No carpal dislocation or fracture is evident. Mild degenerative changes at the base of the thumb are noted. IMPRESSION: 1. Impacted intra-articular fracture of the distal radius with increasing sclerosis and subtle callus formation with slight dorsal angulation, unchanged. 2. Chip fracture of the ulnar styloid, unchanged. Healed third and fifth metacarpal fractures noted. Electronically signed by: Valentin Schafer MD 05/26/2017 5:37 PM [facility]
== END ==
LOC: RAD 09:14
PROVIDERS: ATTEND Orthopaedic Surgery
DX: S52.501D Unspecified fracture of the lower end of right radius, subsequent encounter for closed fracture with routine healing (principal)

== ENCOUNTER 2017-06-20 12:58 | Inpatient (IN) | payer MEDICARE ==
[2017-06-20] MEDS ORDERED: MORPHINE SULFATE INJ 10 MG/ML VIAL IV ONE (13:27)
[2017-06-20] MEDS ORDERED: ONDANSETRON INJ 4 MG/2 ML VIAL IV ONE (13:29)
--- NOTE | 2017-06-20 13:30 | ED.PDOC ---
History of Present Illness - General Chief Complaint: Upper Extremity Injury Stated Complaint: Fell, Injured Shoulder Time Seen by Provider: 06/20/17 13:26 Source: patient Exam Limitations: no limitations - History of Present Illness Timing/Duration: 1 hour Improving Factors: immobilization Worsening Factors: movement Allergies/Adverse Reactions: Allergies Sulfa Drugs Allergy (Unknown, Verified 02/18/17 12:00) Home Medications: Ambulatory Orders RX: Amantadine HCl 100 mg PO BID 07/30/12 RX: Carbidopa/Levodopa 50/200 Cr [Sinemet Cr] 1 tab PO BEDTIME 07/30/12 RX: Furosemide 40 mg PO DAILY 07/30/12 RX: Saw Bellerose (Serenoa Repens) [Saw Bellerose] 160 mg PO BEDTIME 07/30/12 RX: Finasteride [Proscar] 5 mg PO DAILY 01/20/13 RX: ALPRAZolam [Xanax] 1 mg PO BID 10/15/15 RX: Propranolol LA [Inderal LA] 60 mg PO BEDTIME 03/09/16 RX: Acetaminophen W/ Codeine [Tylenol W/ CODEINE #3] 1 ea PO QID PRN 05/19/16 RX: Rgnflwdxt-Hacbrijj-Awptnnstfe [Carbidopa/Levodopa/Entaca 50-200-200 mg] 0.5 tab PO DAILY 05/22/16 RX: Dexlansoprazole [Dexilant] 60 mg PO DAILY 05/22/16 RX: Melatonin 3 mg PO BEDTIME 05/22/16 RX: Non-Formulary Medication 0.4 mg PO DAILY 05/22/16 RX: Sucralfate Tab [Carafate Tab] 1 gm PO AC 05/22/16 Aspirin [Wilbert Low Dose] 81 mg PO DAILY 02/18/17 RX: Indomethacin 50 mg PO TID PRN #14 cap 02/18/17 Review of Systems - Review of Systems Constitutional: States: weakness. Denies: diaphoresis, fever, malaise EENTM: Denies: ear pain, nose pain, throat pain, mouth pain Respiratory: Denies: cough, short of breath, stridor Cardiology: Denies: chest pain, edema, palpitations, syncope Gastrointestinal/Abdominal: Denies: abdominal pain, constipation, diarrhea, nausea, vomiting Genitourinary: Denies: dysuria, frequency, hematuria Musculoskeletal: States: joint pain, muscle pain. Denies: back pain, joint swelling Skin: Denies: change in color, change in hair/nails, dryness, lesions Neurological: Denies: anxiety, depressed, emotional problems, headache, numbness Endocrine: Denies: excessive sweating, flushing Hematologic/Lymphatic: States: anemia. Denies: blood clots, easy bleeding, easy bruising All other Systems: Reviewed and Negative Past Medical History (General) - Patient Medical History Hx Seizures: No Hx Stroke: No Hx Dementia: No Hx Asthma: No Hx of COPD: Yes Hx Cardiac Disorders: No Hx Congestive Heart Failure: No Hx Pacemaker: No Hx Hypertension: No Hx Thyroid Disease: No Hx Diabetes: No Hx Gastroesophageal Reflux: No Hx Renal Disease: No Hx Cancer: No Hx of HIV: No Hx Hepatitis C: No Hx MRSA: No Surgical History: noncontributory, appendectomy, other - Vaccination History Hx Tetanus, Diphtheria Vaccination: No Hx Influenza Vaccination: No - Med contradiction Hx Pneumococcal Vaccination: Yes Immunizations Up to Date: Yes - Social History Hx Tobacco Use: No Hx Chewing Tobacco Use: No Hx Alcohol Use: No Hx Substance Use: No Hx Substance Use Treatment: No Hx Depression: No Feels Threatened In Home Enviroment: No Feels Threatened In a Relationship: No Hx Physical Abuse: No Hx Emotional Abuse: No Hx Suspected Abuse: No Family Medical History - Family History Father Family History: Unknown Living Status: Cause of : pneumonia Hx Family Asthma: No Hx Family Congestive Heart Failure: No Hx Family Hypertension: No Hx Family Stroke: No Hx Cardiac Disease: No Hx Family Diabetes: No Hx Family Cancer: No Hx Family;Other: Parkinson's Physical Exam - Physical Exam General Appearance: Agitated, Alert, Anxious, Comfortable Eye Exam: left conjunctivae pale Ears, Nose, Throat: normal ENT inspection, normal pharynx Neck: non-tender, full range of motion, supple, normal inspection Respiratory: chest non-tender, lungs clear, normal breath sounds, no respiratory distress Cardiovascular/Chest: normal peripheral pulses, regular rate, rhythm, no edema, no gallop, no JVD Peripheral Pulses: radial,right: 2+, radial,left: 2+ Gastrointestinal/Abdominal: normal bowel sounds, non tender, soft Extremity: other - TENDER TO PALPATION OF THE LT SHOULDER, NO PAIN IN LEFT ELBOW , LT WRIST, LT LEG. DENIES PAIN WITH ROM OF THE RIGHT. Neurologic: state attorney II-XII nml as tested, no motor/sensory deficits, alert, normal mood/affect, oriented x 3 Skin Exam: normal color, warm/dry Lymphatic: no adenopathy Progress - Progress Progress: 06/20/17 14:06 HERE WITH WEAKNESS AND A FALL. IS ON ASPIRIN. CHART REVIEW SHOWS RECURRENT ANEMIA. HAS LEFT SHOULDER PAIN, WILL EVAL FOR ACUTE INTRACRANIAL PATHOLOGY, DISLOCATION, FRACTURE, STRAIN, SPRAIN, CONTUSION, ANEMIA, ELECTROLYTE DERANGEMENTS, COAGULOPATHY. PT IS ANEMIC, WILL NEED TRANSFUSION. - Results/Orders Results/Orders: 06/20/17 13:48 DRUG OF ABUSE,OVERDOSE PANEL Stat 06/20/17 14:57 Transfuse Blood Products .PRN Laboratory Results - last 24 hr 06/20/17 06/20/17 06/20/17 13:48 13:48 13:48 WBC 3.8 L RBC 2.79 L Hgb 7.0 L* Hct 22.2 L MCV 79.6 L MCH 25.0 L MCHC 31.7 L RDW 15.0 H Plt Count 219 MPV 7.9 Absolute Neuts (auto) 2.50 Absolute Lymphs (auto) 0.60 L Absolute Monos (auto) 0.40 Absolute Eos (auto) 0.20 Absolute Basos (auto) 0.00 Neutrophils % 66.1 Lymphocytes % 16.9 L Monocytes % 10.4 H Eosinophils % 5.7 H Basophils % 0.9 PT 12.0 INR 1.060 PTT (SP) 33.9 Sodium 142 Potassium 4.2 Chloride 110 Carbon Dioxide 25 Anion Gap 11.2 L BUN 22 H Creatinine 1.60 H BUN/Creatinine Ratio 13.8 Random Glucose 117 H Serum Osmolality 287.5 Calcium 8.9 Total Bilirubin 0.9 AST 13 ALT < 8 L Alkaline Phosphatase 171 H Serum Total Protein 6.9 Albumin 3.6 Globulin 3.3 Albumin/Globulin Ratio 1.1 Salicylates Acetaminophen < 10.0 L Ethyl Alcohol < 5.40 Departure - Departure Clinical Impression: Symptomatic anemia, Coagulopathy GI bleed Qualifiers: GI bleed type/associated pathology: unspecified gastrointestinal hemorrhage type Qualified Code(s): K92.2 - Gastrointestinal hemorrhage, unspecified Time of Disposition: 14:50 Disposition: Admit Patient Condition: Serious Departure Forms: ED Discharge - Pt. Copy, Patient Portal Self Enrollment Instructions: DI for Arm Pain Referrals: Michael Kemp MD [Primary Care Provider] - 1-2 Weeks Home Medications: Ambulatory Orders RX: Amantadine HCl 100 mg PO BID 07/30/12 RX: Carbidopa/Levodopa 50/200 Cr [Sinemet Cr] 1 tab PO BEDTIME 07/30/12 RX: Furosemide 40 mg PO DAILY 07/30/12 RX: Saw Bellerose (Serenoa Repens) [Saw Bellerose] 160 mg PO BEDTIME 07/30/12 RX: Finasteride [Proscar] 5 mg PO DAILY 01/20/13 RX: ALPRAZolam [Xanax] 1 mg PO BID 10/15/15 RX: Propranolol LA [Inderal LA] 60 mg PO BEDTIME 03/09/16 RX: Acetaminophen W/ Codeine [Tylenol W/ CODEINE #3] 1 ea PO QID PRN 05/19/16 RX: Wqxhpfdyx-Xdoigzmo-Qefmnhxvhq [Carbidopa/Levodopa/Entaca 50-200-200 mg] 0.5 tab PO DAILY 05/22/16 RX: Dexlansoprazole [Dexilant] 60 mg PO DAILY 05/22/16 RX: Melatonin 3 mg PO BEDTIME 05/22/16 RX: Non-Formulary Medication 0.4 mg PO DAILY 05/22/16 RX: Sucralfate Tab [Carafate Tab] 1 gm PO AC 05/22/16 Aspirin [Wilbert Low Dose] 81 mg PO DAILY 02/18/17 RX: Indomethacin 50 mg PO TID PRN #14 cap 02/18/17 Critical Care Note - Critical Care Note Total Time (mins): 35 Comments: WITH MARKED ANEMIA PT WILL NEED A BLOOD TRANSFUSION. WILL ADMIT FOR FURTHER WORKUP AND TREATMENT. CRITICAL CARE FINDINGS- SYMPTOMATIC ANEMIA CRITCAL CARE INDICATIONS H-7\ CRITICAL CARE INTERVENTIONS- BLOOD TRANSFUSION CRITICAL CARE TIME- 35 MIN WERE SPENT EITHER AT THE PATIENTS BESIDE OBTAINING THE HISTORY, EXAM, CHART REVIEW, LAB/IMAGING ORDER, LAB/IMAGING REVIEW, TIME SPENT WITH CONSULTANTS, AND DOCUMENTATION TIME. SYSTEMS AT RISK- CARDIAC, RENAL, RESPIRATORY, NEUROLOGICAL Decision To Admit - Decistion To Admit Decision to Admit Reason: Admit from ER Decision to Admit Date: 06/20/17 Decision to Admit Time: 14:50
[2017-06-20] MEDS ORDERED: SODIUM CHLORIDE 0.9% 500ML 500 ML ONE (14:10)
--- NOTE | 2017-06-20 14:31 | RAD ---
EXAM DESCRIPTION: Shoulder,Left 2 or More Views CLINICAL HISTORY: 77 years Male, FALL, LEFT SHOULDER PAIN COMPARISON: Left clavicle radiographs 10/31/2015. TECHNIQUE: AP and lordotic images of the left clavicle. FINDINGS: Irregularity of the cortex is noted but this was also seen on the prior images in October 2015. No a.c. dislocation but narrowing of the joint space. No glenohumeral dislocation. No abnormal radiodense objects in the soft tissues or joint spaces. Adjacent left ribs are unremarkable. IMPRESSION: Deformity from previous distal left clavicle fracture October 2015, or recurrent minimally displaced fracture. Minimal joint space narrowing and arthrosis left acromioclavicular joint. Electronically signed by: Aramis Martinez MD 06/20/2017 2:30 PM [facility]
--- NOTE | 2017-06-20 14:40 | CT ---
EXAM DESCRIPTION: Head: Computed Tomography. CLINICAL HISTORY: FELL, HIT HEAD, ON ANTICOAGULATION COMPARISON: Radiographs of the shoulder on the same visit. TECHNIQUE: Non-helical axial scans through the skull and brain, at 5.0 mm intervals, non-contrast. Not helical axial 2.5 mm reconstructions and coronal and sagittal 2.0 mm reconstructions. Total Exam DLP: 967.47 mGy-cm. This exam was performed according to our departmental dose-optimization program which includes automated exposure control, adjustment of the mA and/or kV according to patient size and/or use of iterative reconstruction technique; to reduce radiation dose to as low as reasonably achievable (ALARA). FINDINGS: No hemorrhage, no mass-effect, and no midline shift. Bilateral periventricular low-density also involving the subcortical white matter bilaterally. No abnormal radiodense material in the brain parenchyma. Vascular calcifications anterior and posterior circulations; physiologic calcifications in the pineal gland and choroid plexus. No effacement or displacement of the ventricles, CSF spaces, or subdural spaces. No extra axial fluid collection or hemorrhage. No gross abnormalities of the bony calvarium. Minimal mucoperiosteal thickening in the paranasal sinuses. IMPRESSION: 1. No hemorrhage, no mass effect, no midline shift. Bilateral low-density in the periventricular and subcortical white matter most likely related to cerebral microvascular disease. No intra-axial hemorrhage. 2. CT scans are insensitive for detecting small CVAs in the first 24 hours after onset. Evaluation of the brain stem is also limited. If symptoms persist, consider MRI scan of the brain with diffusion imaging. Electronically signed by: Aramis Martinez MD 06/20/2017 2:39 PM [facility]
--- NOTE | 2017-06-20 15:47 | HP ---
SUPERVISING PHYSICIAN: Mike Warner MD CHIEF COMPLAINT: Same level fall with near-syncopal episode with shoulder pain. HISTORY OF PRESENT ILLNESS: Mr. Landon is a 77 year-old male patient who appeared in the Emergency Department today with complaints of pain in his left shoulder from a same level fall, hit a metal bed frame. He knows that he was dizzy but actually had not had any loss of consciousness. In the Emergency Room, his laboratory studies showed him to be severely anemic with a hemoglobin of 7 and hematocrit of 22.2, platelet count 219,000, differential within normal limits. He does have a history of chronic anemia and required transfusions in the past with admission in April of 2016 at which time he had a GI consultation that showed his upper GI was essentially clear without any acute findings. He also had a colonoscopy in [address] Georges with no evidence of pathology or GI bleeding. He denied any recent changes in his stool , any rectal bleeding or bright red blood. He notes that sometimes when he does not take his Miralax, his stools change from brownish to a dark color but denies any adria blood. His initial vital signs in the Emergency Department showed he was normotensive with a blood pressure of 160/65, heart rate 67, he was afebrile at 97.3, saturation 98% on room air with respirations of 22. Additional laboratory studies showed his coagulation studies were within normal limits. Chemistries showed a mild elevation of his creatinine at 1.6. All other electrolytes were within normal limits. Liver functions were all normal except for elevated alkaline phosphatase at 171. Toxicology screen showed a salicylates, acetomorphine and alcohol all to be within normal limits. Urinalysis was pending at time of admission. He had a CT of the head without contrast and per radiology interpretation there was no hemorrhage, mass effects or midline shift. There was noted bilateral low density within the periventricular and subcortical white matter, most likely related to cerebral microvascular disease but no intraaxial hemorrhage. He also had a shoulder x- ray on the left and per radiology interpretation showed deformity from previous distal left clavicle fracture in October 2015, a recurrent minimal displaced fracture with joint space narrowing and arthrosis of the left acromioclavicular joint. PAST MEDICAL HISTORY: 1. Hypertension. 2. Parkinson's disease. 3. Insomnia. 4. Chronic anemia. 5. Paroxysmal atrial fibrillation, on aspirin. 6. Hyperlipidemia. 7. Chronic obstructive pulmonary disease. 8. Coronary atherosclerotic disease. PAST SURGICAL HISTORY: 1. Appendectomy. 2. Cholecystectomy. 3. Fusion of L5 through S1. 4. Left hip fracture repair. 5. Recent right wrist fracture followed by Dr. Palmer utilizing conservative treatment. 6. Last EGD was May 2016 and noted to be normal performed by Dr. Georges as well as colonoscopy in 2016 showing to be within normal limits. CURRENT MEDICATIONS: Awaiting verification but listed on admission as follows: 1. Tylenol No. 3, one q.i.d. as needed. 2. Xanax 1 mg b.i.d. 3. Dexilant 60 m g daily. 4. Carbidopa/Levodopa 50/20 CR, one tablet at bedtime. 5. Aspirin low dose. 6. Carbidopa/Levodopa with Entacapone 1/2 tablet daily. 7. Amantadine 100 mg twice a day. 8. Lasix 40 mg daily. 9. Proscar 5 mg daily. 10. Indomethacin 50 mg t.i.d. 11. Melatonin 3 mg at bedtime. 12. Saw [place] 160 mg at bedtime. 13. Carafate 1 gram p.o. a.c. ALLERGIES: SULFA DRUGS. FAMILY HISTORY: Noncontributory. SOCIAL HISTORY: The patient is retired, a former Marine. He lives in [place]. He has never smoked. He denies any alcohol or illicit drug use. REVIEW OF SYSTEMS: CONSTITUTIONAL: Denies fever, chills, unintentional weight loss.. HEENT: Denies earache, frequent rhinorrhea, sore throat/ CHEST: Denies any recent cough but does have some dyspnea. HEART: Denies chest pain, pedal edema but as per history of present illness a recent near syncopal episode. ABDOMEN: Denies abdominal pain, constipation, nausea, diarrhea or any other symptoms.. NEUROLOGIC: Negative for any ataxia, headaches but does have a tremor related to his Parkinson's disease. PHYSICAL EXAMINATION: VITAL SIGNS: Temperature 97.3, pulse 67, blood pressure 160/65, respiratory rate 20, saturation 98% on room air. Admission weight 72.2 kg. GENERAL: The patient in med/surge bed appears to be comfortable and in no acute distress. He is well-hydrated and well-nourished. HEENT: Tympanic membranes clear bilaterally. Oropharynx pink and moist without any lesions. NECK: Supple, non-tender with full range of motion No jugular venous distention. CHEST: Lungs clear to auscultation bilaterally without notable rhonchi, rales , or wheezes. CARDIOVASCULAR: Slightly irregular rate and rhythm without any appreciable murmurs, rubs, or gallops. ABDOMEN: Soft, non-tender with positive bowel sounds. EXTREMITIES: No cyanosis, clubbing, or edema. He does have a recent history of a left wrist fracture being followed by Dr. Palmer utilizing a brace. No obvious deformities to the right shoulder. He has limited range of motion and some pain with palpation. No reported paresthesias. [place] are equally strong. He is alert and oriented x 3. NEUROLOGIC: Patient is noted to have a tremor secondary to his Parkinson's disease but as tested cranial nerves II through XII are grossly intact. Facial features were symmetrical. Extraocular movement within normal limits. No notable nystagmus. LABORATORY: CBC showed a white count 3.8 with hemoglobin 7,000, hematocrit 22.0 , platelet count 219,000. Differential without any shift. Coagulation studies showed normal PT/PTT. Chemistries showed normal electrolytes with potassium 4.2 , BUN 22, creatinine 1.6. Liver functions within normal limits except for a slightly elevated alkaline phosphatase. Toxicology screen was unremarkable. Urinalysis pending at time of admission. RADIOLOGY: CT of the head without contrast and per radiology interpretation no hemorrhage or mass effects were noted. There was no midline shift. There was noted bilateral lower densities in the periventricular and subcortical white matter most likely related to a cerebral microvascular disease. There was no noted intraaxial hemorrhage. ASSESSMENT: 1. Symptomatic anemia with the patient having a near-syncopal episode and same level fall with no acute injuries noted. 2. History of Parkinson's disease. 3. Hypertension. 4. History of insomnia. 5. Renal insufficiency likely prerenal azotemia secondary to hypovolemia from moderate anemia which again is secondary more likely to chronic disease and some degree of his decreased renal function. 6. Recent wrist fracture, left wrist.on 05/26/[address] Palmer with conservative treatment measures utilizing a brace. PLAN: The patient will be admitted to the hospital for close observation with infusion of 2 units of packed red blood cells overnight. Will plan to give him Lasix 20 mg after the second unit is completed and he will be premedicated with Benadryl and Tylenol. Will provide pain management as needed with morphine, Dilaudid or Motrin cautiously based off his renal function. Will anticipate length of stay to be at least 2 to 3 days until stable clinically. Repeat laboratory studies. Will continue to monitor and treat appropriately. #[id number] [facility]
[2017-06-20] MEDS ORDERED: ACETAMINOPHEN 325 MG TAB PO ONE (16:36)
[2017-06-20] MEDS ORDERED: diphenhydrAMINE HCL 50 MG/ML VIAL IV ONE (16:36)
[2017-06-20] MEDS ORDERED: MORPHINE SULFATE INJ 10 MG/ML VIAL IV PRN (16:40)
[2017-06-20] MEDS ORDERED: SODIUM CHLORIDE 0.9% (FLUSH) 10 ML SYG IV PRN (16:40)
[2017-06-20] MEDS ORDERED: IV SET AND CAP CHANGE INJ INJ SCH (17:00)
[2017-06-20] MEDS ORDERED: SODIUM CHLORIDE 0.9% 500ML 500 ML IVS SCH (17:00)
[2017-06-20] MEDS: PANTOPRAZOLE SODIUM IV 40 MG VIAL IV SCH (17:55)
[2017-06-20] MEDS: SODIUM CHLORIDE 0.9% (FLUSH) 10 ML SYG IV SCH (20:31)
[2017-06-21] MEDS ORDERED: FUROSEMIDE INJ 20 MG/2 ML VIAL IV ONE (03:30)
[2017-06-21] MEDS ORDERED: ACETAMINOPHEN 325 MG TAB PO ONE (09:25)
[2017-06-21] MEDS ORDERED: diphenhydrAMINE HCL 50 MG/ML VIAL IV ONE (09:25)
[2017-06-21] MEDS ORDERED: SODIUM CHLORIDE 0.9% 500ML 500 ML IVS SCH (09:30)
[2017-06-21] MEDS: SODIUM CHLORIDE 0.9% (FLUSH) 10 ML SYG IV SCH ×2 (09:58→21:20)
[2017-06-21] MEDS ORDERED: metroNIDAZOLE IV PREMIX 500MG 500 MG in PREMIX BAG 1 BAG IVPB SCH (11:30)
[2017-06-21] MEDS: PANTOPRAZOLE SODIUM IV 40 MG VIAL IV SCH (17:20)
--- NOTE | 2017-06-21 19:10 | PN ---
DATE: 06/21/17 SUPERVISING PHYSICIAN: Mike Warner M.D. SUBJECTIVE: The patient received 2 units of blood last night without any complications. He has had no temperatures. No nausea or vomiting. OBJECTIVE: VITAL SIGNS: Temperature 98.1, pulse 72, blood pressure 179/84, respirations 16, satting 99% on room air. I's and O's show a positive balance of 852 with 1377 in, 525 out. Weight is 73.8 kg. CHEST: Lungs are clear to auscultation. HEART: Regular rate and rhythm. ABDOMEN: Soft, non-tender. Positive bowel sounds. EXTREMITIES: No clubbing, cyanosis or edema. NEUROLOGIC : He is alert and oriented times three. LABORATORY: CBC this morning showed white count 4,800 with hemoglobin up to 8.2 , hematocrit 25.3, platelet count 211,000. Differential shows to be without a left shift. Chemistries show normal electrolytes with potassium 3.9, BUN 20, creatinine 1.78, calcium 8.7. ASSESSMENT: 1. Symptomatic anemia with the patient having a near-syncopal episode and same level fall with no acute injuries noted on admission and radiographic studies. 2. History of Parkinson's disease followed by specialist. 3. Hypertension. 4. History of insomnia. 5. Renal insufficiency likely prerenal azotemia secondary to hypovolemia from moderate anemia which again is secondary more likely to chronic disease and some degree of his decreased renal function. 6. Recent wrist fracture, left wrist.on 05/26/[address] Palmer with conservative treatment measures utilizing a brace. PLAN: Given that his hemoglobin only came up to 8.2, will give him an additional unit to total 3 units today. Premedicated with Benadryl and Tylenol prior to infusion of blood. I will plan to reevaluate in the morning with repeat CBC and BMP. He has had good pain control. He has an appointment on Friday morning early with his Parkinson's specialist, therefore will plan to discharge tomorrow if the patient shows to be stable. He still has some occult bloods pending. Will follow those closely. Until discharge, continue to monitor and treat appropriately. #[id number] [facility]
--- NOTE | 2017-06-21 23:56 | PCM.CORE ---
Physician DVT/VTE - Contraindications Medication Contraindication: Medical Contraindication - questionable gi bleed - Nurse DVT Assessment & Total Each Risk Factor Represents 3 Points: Age over 75 years Each Risk Factor is 1 Point: Serious Lung disease (pnemonia <1month, COPD, emphysema,etc) DVT Assessment Score: 4 - 3-4 High Risk Treatments: Early Ambulation *, Sequential Compression Device
[2017-06-22 06:24] VITALS: BP 180/80; TEMP 97.7; O2SAT 97
[2017-06-22] MEDS ORDERED: SUCRALFATE 1 GM TAB PO SCH (07:00)
[2017-06-22] MEDS: SODIUM CHLORIDE 0.9% (FLUSH) 10 ML SYG IV SCH (08:33)
[2017-06-22] MEDS ORDERED: FUROSEMIDE 40 MG TAB PO SCH (09:00)
[2017-06-22] MEDS ORDERED: PANTOPRAZOLE SODIUM TAB 40 MG PO SCH (09:00)
[2017-06-22] MEDS ORDERED: FINASTERIDE 5 MG TAB PO SCH (09:00)
[2017-06-22] MEDS ORDERED: CARBIDOPA PO SCH (21:00)
[2017-06-22] MEDS ORDERED: LEVODOPA PO SCH (21:00)
[2017-06-22] MEDS ORDERED: MELATONIN 3 MG TAB PO SCH (21:00)
--- NOTE | 2017-06-29 16:27 | DS ---
DISCHARGE DIAGNOSES: 1. Symptomatic anemia likely to be a chronic illness with no evidence of acute loss with a near-syncopal episode and same level fall with no acute injuries noted.on admission and negative radiographic studies, improving with infusion of 3 units of packed red blood cells. 2. History of Parkinson's disease followed by specialist. 3. Hypertension. 4. History of insomnia. 5. Renal insufficiency likely prerenal azotemia secondary to hypovolemia from moderate anemia again is secondary to chronic disease and some degree of decreased renal function, improved with blood transfusion. 6. Recent wrist fracture on 05/26/[address] Palmer with conservative treatment measures utilizing a brace. REASON FOR HOSPITALIZATION: Mr. Landon is a 77 year-old male patient who presented to the Emergency Department on 06/20/17 with complaints of pain in his left shoulder from a same level fall after hitting a metal bed frame. He notes that he was dizzy but actually had not had any loss of consciousness. In the Emergency Room , his laboratory studies showed him to be severely anemic with a hemoglobin of 7 and hematocrit of 22.2, He does have a history of chronic anemia and required transfusions in the past with admission in April of 2016 at which time he had a GI consultation that showed his upper GI was essentially clear without any acute findings. He also had a colonoscopy in [address] Georges with no evidence of pathology or GI bleeding. He denied any recent changes in his stool, any rectal bleeding or bright red blood. He notes that sometimes he does not take his Miralax, his stools change from brownish to a dark color but denies any adria blood. His initial vital signs in the Emergency Department showed he was normotensive with a blood pressure of 160/65, heart rate 67, he was afebrile, saturation 98% on room air. Other laboratory functions showed he had an elevated alkaline phosphatase and his toxicology screen showed salicylates, acetaminophen and alcohol within normal limits. He also had a CT of the head without contrast and per radiology interpretation there was no evidence of hemorrhage, mass effects or midline shift. He also had a shoulder x-ray on the left and per radiology interpretation showed deformity from previous distal left clavicle fracture in October 2015, a recurrent minimal displaced fracture with joint space narrowing and arthrosis of the left acromioclavicular joint. He was admitted for further evaluation and treatment. He was admitted in stable condition. LABORATORY STUDIES: White count on admission was 3,800, prior to discharge had gone to 4,800. Hemoglobin initially was 7, hematocrit 22.2. After three units of packed red blood cells at discharge, hemoglobin was 9.8 and hematocrit 30.4. Platelet count was 211,000, differential was within normal limits. Coagulation studies showed normal PT/PTT. Chemistries both on admission and discharge showed normal electrolytes. BUN at discharge was 19, creatinine 1.65. Calcium 9.2. Toxicology screen, urine drug screen was negative for all substances tested. Alcohol acetaminophen levels were within normal limits. RADIOLOGY: CT of the head without contrast prior to admission per radiology interpretation showed no hemorrhage or mass effects, no midline shift, bilateral low density within periventricular and subcortical white matter most likely related to cerebral microvascular disease and no intraaxial hemorrhage. X-ray of the left shoulder prior to admission per radiology interpretation showed deformity from previous distal left clavicle fracture in October 2015 with recurrent minimal displaced fracture, minimal joint space narrowing and arthrosis of the left acromioclavicular joint. HOSPITAL COURSE: Mr. Landon was admitted on as noted above for symptomatic anemia with a same level fall. He was transfused 3 units of packed red blood cells which he tolerated well without any complications. He showed to be clinically and hemodynamically stable with no evidence of acute loss of blood. He was felt clinically able to be discharged to followup in outpatient setting if he was stable. PLAN: Mr. Landon was discharged on 06/22/17 with instructions to have close clinical followup with Dr. Kemp in the following week. He was to have home health care with [facility]. He is to resume his medications as previous to hospitalization. He was told to return to the hospital should he ave any recurrence or concerning symptoms. No new medications were prescribed at discharge. Diet at discharge was regular diet as tolerated. Activities to be increased as tolerated per physical therapy and home health. Condition on discharge was stable and improved. #[id number] [facility]
== END 2017-06-22 11:26 | disposition home health service (06) | DRG 684 ==
LOC: ER 12:58 → MS 15:47
PROVIDERS: ADMIT Nurse Practitioner Family; ATTEND Nurse Practitioner Family
PROC: 30233N1 Transfusion of Nonautologous Red Blood Cells into Peripheral Vein, Percutaneous Approach (ICD-10-PCS; principal; 2017-06-20)
DX: I12.9 Hypertensive chronic kidney disease with stage 1 through stage 4 chronic kidney disease, or unspecified chronic kidney disease (principal); D63.1 Anemia in chronic kidney disease; D63.8 Anemia in other chronic diseases classified elsewhere; G20 Parkinson's disease; N18.9 Chronic kidney disease, unspecified; I10 Essential (primary) hypertension; G47.00 Insomnia, unspecified; E86.1 Hypovolemia; R79.89 Other specified abnormal findings of blood chemistry; I48.0 Paroxysmal atrial fibrillation; E78.5 Hyperlipidemia, unspecified; J44.9 Chronic obstructive pulmonary disease, unspecified; I25.10 Atherosclerotic heart disease of native coronary artery without angina pectoris; M25.512 Pain in left shoulder; W01.190A Fall on same level from slipping, tripping and stumbling with subsequent striking against furniture, initial encounter; Z79.82 Long term (current) use of aspirin; Z88.2 Allergy status to sulfonamides; S62.102D Fracture of unspecified carpal bone, left wrist, subsequent encounter for fracture with routine healing; Y93.9 Activity, unspecified; Y92.003 Bedroom of unspecified non-institutional (private) residence as the place of occurrence of the external cause; Y99.9 Unspecified external cause status

== ENCOUNTER → 2017-06-26 | Outpatient (CLI) | payer MEDICARE ==
--- NOTE | 2017-06-27 08:23 | RAD ---
EXAM DESCRIPTION: Wrist,Right 3 Views CLINICAL HISTORY: 77 years, Male, CLOSED FX OF DISTAL END OF RADIUS COMPARISON: Previous study May 26, 2017 FINDINGS: Right wrist 3 x-ray views show increasing sclerosis around the distal radial fracture. No change in alignment since the previous study. Findings suggest callus formation of early healing. Ulnar styloid is avulsed. Deformity of the fifth metacarpal is most consistent with old healed fracture. Carpal relationships are well-maintained. Bones appear osteoporotic. IMPRESSION: Healing fractures of distal right radius and ulna. Electronically signed by: Arnie Morel MD 06/27/2017 8:23 AM [facility]
== END ==
LOC: RAD 09:34
PROVIDERS: ATTEND Orthopaedic Surgery
DX: S52.501D Unspecified fracture of the lower end of right radius, subsequent encounter for closed fracture with routine healing (principal)

== ENCOUNTER 2017-07-03 10:41 | Observation (INO) | payer MEDICARE ==
[2017-07-03] MEDS ORDERED: SODIUM CHLORIDE 0.9% 1000ML 1,000 ML IVS ONE ×2 (11:45→14:49)
--- NOTE | 2017-07-03 11:47 | ED.PDOC ---
History of Present Illness - General Chief Complaint: General Stated Complaint: weakness; debility Time Seen by Provider: 07/03/17 11:41 Source: RN notes reviewed, EMS notes reviewed, family Additional Information: 77 YEAR OLD BROUGHT HERE BY FAMILY FOR PROGRESSIVE WEAKNESS PT TOOK A FALL 3 WEEKS AGO INJURED HIS LEFT SHOULDER SINCE THEN FAMILY HAD NOTICED HE IS WEAKER NOW HAS DIFFICULT TIME EVEN WALKING TO THE BATHROOM HE HAS KNOWN HISTORY OF PARKINSONS DISEASE ATRIAL FIBRILLATION ( NOT ON ANTICOAGULANTS) BPH - History of Present Illness Timing/Duration: 1 week Severity: moderate Improving Factors: nothing Worsening Factors: nothing Associated Symptoms: denies symptoms Allergies/Adverse Reactions: Allergies Sulfa Drugs Allergy (Unknown, Verified 02/18/17 12:00) Home Medications: Ambulatory Orders Amantadine HCl 100 mg PO BID 07/30/12 Carbidopa/Levodopa 50/200 Cr [Sinemet Cr] 1 tab PO BEDTIME 07/30/12 Saw [place] (Serenoa Repens) [Saw [place]] 160 mg PO BEDTIME 07/30/12 Finasteride [Proscar] 5 mg PO DAILY 01/20/13 ALPRAZolam [Xanax] 1 mg PO BID 10/15/15 Acetaminophen W/ Codeine [Tylenol W/ CODEINE #3] 1 ea PO QID PRN 05/19/16 Ewwvzbjta-Dtvwqivt-Bganlskprg [Carbidopa/Levodopa/Entaca 50-200-200 mg] 0.5 tab PO DAILY 05/22/16 Dexlansoprazole [Dexilant] 60 mg PO DAILY 05/22/16 Melatonin 3 mg PO BEDTIME 05/22/16 Sucralfate Tab [Carafate Tab] 1 gm PO AC 05/22/16 Aspirin [Wilbert Low Dose] 81 mg PO DAILY 02/18/17 Indomethacin 50 mg PO TID PRN #14 cap 02/18/17 Furosemide Tab [Lasix Tab] 40 mg PO DAILY 06/22/17 Review of Systems - Review of Systems Constitutional: States: see HPI EENTM: States: no symptoms reported Respiratory: States: no symptoms reported Cardiology: States: no symptoms reported Gastrointestinal/Abdominal: States: no symptoms reported Genitourinary: States: no symptoms reported Musculoskeletal: States: no symptoms reported Skin: States: no symptoms reported Neurological: States: no symptoms reported Endocrine: States: no symptoms reported Hematologic/Lymphatic: States: no symptoms reported Past Medical History (General) - Patient Medical History Hx Seizures: No Hx Stroke: No Hx Dementia: No Hx Asthma: No Hx of COPD: Yes Hx Cardiac Disorders: No Hx Congestive Heart Failure: No Hx Pacemaker: No Hx Hypertension: Yes Hx Thyroid Disease: No Hx Diabetes: No Hx Gastroesophageal Reflux: No Hx Renal Disease: No Hx Cancer: No Hx of HIV: No Hx Hepatitis C: No Hx MRSA: No - Vaccination History Hx Tetanus, Diphtheria Vaccination: No Hx Influenza Vaccination: No Hx Pneumococcal Vaccination: Yes - Social History Hx Tobacco Use: No Hx Chewing Tobacco Use: No Hx Alcohol Use: No Hx Substance Use: No Hx Substance Use Treatment: No Hx Depression: No Hx Physical Abuse: No Hx Emotional Abuse: No Hx Suspected Abuse: No Family Medical History - Family History Father Family History: Unknown Living Status: Cause of : pneumonia Hx Family Asthma: No Hx Family Congestive Heart Failure: No Hx Family Hypertension: No Hx Family Stroke: No Hx Cardiac Disease: No Hx Family Diabetes: No Hx Family Cancer: No Hx Family;Other: Parkinson's Physical Exam - Physical Exam General Appearance: Lethargic Eye Exam: bilateral normal Ears, Nose, Throat: hearing grossly normal, normal ENT inspection, normal pharynx Neck: non-tender, full range of motion, supple Respiratory: chest non-tender, lungs clear, normal breath sounds, no respiratory distress Cardiovascular/Chest: normal peripheral pulses, no edema, no gallop, no JVD, tachycardia Gastrointestinal/Abdominal: normal bowel sounds, non tender, soft, no organomegaly, no pulsatile mass Back Exam: normal inspection, no CVA tenderness, no vertebral tenderness Extremity: non-tender, normal inspection, no pedal edema, no calf tenderness Neurologic: zoology technical officer II-XII nml as tested, no motor/sensory deficits, alert, normal mood/affect, oriented x 3 Progress - Results/Orders Results/Orders: Laboratory Tests 07/03/17 07/03/17 11:48 11:48 WBC 9.0 RBC 4.13 L Hgb 10.6 L Hct 33.1 L MCV 80.2 MCH 25.6 L MCHC 32.1 L RDW 16.9 H Plt Count 255 MPV 8.4 Absolute Neuts (auto) 7.40 H Absolute Lymphs (auto) 0.70 L Absolute Monos (auto) 0.60 Absolute Eos (auto) 0.20 Absolute Basos (auto) 0.10 Neutrophils % 82.7 H Lymphocytes % 8.2 L Monocytes % 6.6 Eosinophils % 1.9 Basophils % 0.6 Sodium 139 Potassium 4.2 Chloride 104 Carbon Dioxide 26 Anion Gap 13.2 BUN 21 H Creatinine 1.40 H BUN/Creatinine Ratio 15.0 Random Glucose 121 H Serum Osmolality 281.8 Calcium 9.2 Total Bilirubin 1.3 H AST 28 ALT < 8 L Alkaline Phosphatase 178 H Serum Total Protein 7.6 Albumin 3.5 Globulin 4.1 H Albumin/Globulin Ratio 0.9 L Departure - Departure Clinical Impression: Weakness generalized, Parkinson disease Time of Disposition: 13:14 Disposition: Admit Patient Condition: Fair Departure Forms: ED Discharge - Pt. Copy, Patient Portal Self Enrollment Diet: resume usual diet Referrals: Michael Kemp MD [Primary Care Provider] - 1-2 Weeks Home Medications: Ambulatory Orders Amantadine HCl 100 mg PO BID 07/30/12 Carbidopa/Levodopa 50/200 Cr [Sinemet Cr] 1 tab PO BEDTIME 07/30/12 [place] (Serenoa Repens) [Saw [place]] 160 mg PO BEDTIME 07/30/12 Finasteride [Proscar] 5 mg PO DAILY 01/20/13 ALPRAZolam [Xanax] 1 mg PO BID 10/15/15 Acetaminophen W/ Codeine [Tylenol W/ CODEINE #3] 1 ea PO QID PRN 05/19/16 Hazbdbqus-Gaadmwjz-Fesutctyqb [Carbidopa/Levodopa/Entaca 50-200-200 mg] 0.5 tab PO DAILY 05/22/16 Dexlansoprazole [Dexilant] 60 mg PO DAILY 05/22/16 Melatonin 3 mg PO BEDTIME 05/22/16 Sucralfate Tab [Carafate Tab] 1 gm PO AC 05/22/16 Aspirin [Wilbert Low Dose] 81 mg PO DAILY 02/18/17 Indomethacin 50 mg PO TID PRN #14 cap 02/18/17 Furosemide Tab [Lasix Tab] 40 mg PO DAILY 06/22/17 Decision To Admit - Decistion To Admit Decision to Admit Date: 07/03/17 Decision to Admit Time: 13:15
[2017-07-03] MEDS ORDERED: SODIUM CHLORIDE 0.9% 1000ML 1,000 ML ONE (12:09)
--- NOTE | 2017-07-03 13:18 | RAD ---
EXAM DESCRIPTION: Chest,1 View CLINICAL HISTORY: cough COMPARISON: February 18, 2017 FINDINGS: Accounting for AP technique, the cardiomediastinal silhouette is unremarkable. There are mural calcifications in the aortic arch. Subsegmental atelectasis or scarring is noted in both lung bases, there is no airspace consolidation or pleural effusion. There is a questionable tiny nodule in the right lung base. A curvilinear interface projecting over the right hemithorax likely represents a skinfold. There is no pneumothorax or acute fracture. IMPRESSION: Possible right basilar lung nodule, but no additional abnormality to explain patient symptoms. Chest CT is suggested for further evaluation. Electronically signed by: Alli Nance MD 07/03/2017 1:18 PM CDT
--- NOTE | 2017-07-03 13:19 | RAD ---
EXAM DESCRIPTION: Shoulder,Left 2 or More Views CLINICAL HISTORY: S/P Shoulder Injury, shoulder pain COMPARISON: None Available. TECHNIQUE: Two views of the left shoulder. FINDINGS: There is adequate internal and external rotation. There is no acute appearing fracture or dislocation. Deformity of the peripheral left clavicle is thought to be an old healed fracture. No periosteal new bone formation or callus formation to suggest a recent osseous injury. AC joint appears intact. There are no significant degenerative changes observed. Glenohumeral joint appears intact. No focal bone lesion. IMPRESSION: Peripheral left clavicular deformity suggests old healed fracture. No acute fracture or dislocation. Electronically signed by: Arnie Morel MD 07/03/2017 1:18 PM CDT
--- NOTE | 2017-07-03 13:29 | HP ---
SUPERVISING PHYSICIAN: MUNA KUMAR M.D. CHIEF COMPLAINT: Extreme weakness and inability to walk. HISTORY OF PRESENT ILLNESS: This is a 77 year-old male patient who was brought to the Emergency Room today for progressive weakness noted by his family. In the past 3 weeks he has fallen multiple times. He does have a history of Parkinson's and he has progressively worsened to the point that he cannot even walk. He was actually in the hospital 2 weeks ago for symptomatic anemia where his hemoglobin dropped as low as 7. He was given 3 units of packed red blood cells and was discharged home with home health. Since that time, he has progressively weakened. He lives with his daughter and he is unable to participate in any of his care. In the Emergency Room, his WBCs were found to be 9, hemoglobin as 10.6 with hematocrit 33.1, neutrophils 82.7%. BUN 21, creatinine 1.4, electrolytes were basically within normal limits. Glucose was slightly elevated at 121 with a total bilirubin of 1.3 and alkaline phosphatase of 178. He has had no previous history of elevated bilirubin or alkaline phosphatase. Chest x-ray was done and showed a possible right basilar lung nodule but no additional abnormality to explain the patient's symptoms. He did fall 3 weeks ago and hit his left shoulder, and his left shoulder was x-rayed and shows a peripheral left clavicular deformity suggesting an old healed fracture but no acute fracture or dislocation. I was called for hospital admission to the hospital. PAST MEDICAL HISTORY: 1. Hypertension. 2. Parkinson's disease. 3. Insomnia. 4. Chronic anemia. 5. Paroxysmal atrial fibrillation on aspirin. 6. Hyperlipidemia.. 7. Chronic obstructive pulmonary disease. 8. Coronary artery disease. PAST SURGICAL HISTORY: 1. Appendectomy. 2. Cholecystectomy. 3. Fusion of L5 through S1. 4. Left hip fracture repair. 5. Recent wrist fracture in May of [address] Palmer, orthopedic surgeon utilizing conservative treatment. CURRENT MEDICATIONS: Per the EMR and awaiting verification. ALLERGIES: SULFA DRUGS. FAMILY HISTORY: Noncontributory. SOCIAL HISTORY: He is retired. He is a former [employer]. He lives in [place]. He has never smoked. There is no history of any alcohol or illicit drug use. REVIEW OF SYSTEMS: Unable to complete due to the patient's mental status and no family at the bedside PHYSICAL EXAMINATION: VITAL SIGNS: Temperature 99.3, heart rate 80, blood pressure 159/77, respiratory rate 18, O2 sat is 98% on room air. GENERAL: This is a 77 year-old male patient who is lying in his hospital bed. He mumbles at times incoherently and very difficult to understand. Sometimes he does answer some yes/no questions appropriately. HEENT: Normocephalic and atraumatic. Pupils are equal and reactive. Oropharynx is clear. NECK: Supple without mass. There is no discernible jugular venous distention. CHEST: Essentially clear to auscultation bilaterally. There is equal rise and fall of the chest with inspiration and expiration. CARDIOVASCULAR: Regular rate, slightly irregular rhythm. Atrial fibrillation on the equipment monitor phototypesetting. GASTROINTESTINAL: Abdomen is soft, nondistended, non-tender. Bowel sounds are positive. EXTREMITIES: No cyanosis, clubbing or edema. NEUROLOGIC: He has a slight tremor most likely secondary to his Parkinson's disease. He is awake. He is alert. He is unable to answer questions, except occasionally yes/no questions as stated above. LABORATORY: Labs and films are as per the history of present illness. ASSESSMENT: 1. Progressive weakness with loss of ability to walk with multiple falls worsening over last 3 weeks. 2. History of Parkinson's disease with worsening symptoms that may be contributing to #1. 3. Recent history of hospitalization 2 weeks ago for symptomatic anemia. Hgb was 7.0. He received 3 units of packed red blood cells. 4. Chronic renal insufficiency with creatinine of 1.4 and baseline creatinine of 1.2 to 1.3. 5. Elevated bilirubin and alkaline phosphatase with no history of elevated liver function tests. 6. Hypertension. 7. Parkinson's disease. 8. Recent left wrist fracture followed by Dr. Palmer, orthopedic surgeon. PLAN: We will place the patient in Observation. Due to the questionable pulmonary nodule on chest, I will obtain a CT of the chest as well as getting a CT of the abdomen/pelvis due to his elevated bilirubin and alkaline phosphatase. I will also get a urine sample and restart his home medications. I will recheck his lab in the morning. I will consult Front Loader Residential Driver for discharge planning as well as getting a PT consultation. We will monitor the patient closely and follow as needed. Dr. Kumar is the collaborating physician available for consultation. #[id number] [facility]
--- NOTE | 2017-07-03 16:44 | CT ---
EXAM DESCRIPTION: Chest w/o Contrast CLINICAL HISTORY: pulm nodule COMPARISON: Chest radiograph earlier same day. TECHNIQUE: Multiple axial images of the chest without contrast. Multiplanar reconstructions were provided. This exam was performed according to our departmental dose-optimization program, which includes automated exposure control, adjustment of the mA and/or kV according to patient size and/or use of iterative reconstruction technique. FINDINGS: Lungs: Moderate emphysema with fibrosis in both lung bases. There are a few discrete pulmonary nodules which measure up to 5 mm in the right upper lobe on image 48.. A few scattered calcified granulomas are also demonstrated. There is no pleural effusion. Mediastinum: The heart is normal in size. Severe atherosclerosis in the coronary arteries and in the thoracic aorta. The trachea and esophagus are unremarkable. Lymph nodes: Limited evaluation due to lack of IV contrast, but there is no definitive mediastinal or hilar sami enlargement based on CT size criteria. Chest wall and lower neck: No significant finding. Bones: There is a subacute healing nondisplaced fracture in the posterolateral right ninth rib. The bones are demineralized. Multilevel spondylitic changes in the thoracic spine. Upper abdomen: Moderate atherosclerosis in the upper abdominal aorta. IMPRESSION: 1. Subacute nondisplaced fracture in the posterolateral right ninth rib. 2. Emphysema with pulmonary nodules measuring up to 5 mm in the right lung. Follow-up CT chest recommended in one year per guidelines below. 3. Severe coronary artery atherosclerosis. 4. Other findings as above. 2017 Fleischner Society Recommendations for Multiple Solid Lung Nodules Follow-Up base on size (average of long- and short-axis diameters). Use most suspicious nodule for followup. Nodule Size <6 mm High-Risk Patient: Optional CT at 12 months Electronically signed by: Kade Hall MD 07/03/2017 4:43 PM CDT
--- NOTE | 2017-07-03 16:47 | CT ---
EXAM DESCRIPTION: Abdoment/Pelvis w/o Contrast CLINICAL HISTORY: 77 years Male, elevated lfts COMPARISON: 22 May 2016 TECHNIQUE: Transaxial images were obtained without intravenous or oral contrast media.This exam was performed according to our departmental dose-optimization program, which includes automated exposure control, adjustment of the mA and/or kV according to patient size and/or use of iterative reconstruction technique. FINDINGS: Minimal basilar atelectatic type parenchymal changes are observed. The liver and spleen are unremarkable. The gallbladder is been previously removed. Surgical clips are seen in the region of gallbladder fossa. No adrenal masses are detected. The pancreas is normal in appearance. Calcific atherosclerotic changes observed in the abdominal aorta without evidence of aneurysmal dilatation. No renal calcification or definite mass is observed. Probable simple cysts are observed in the lower pole of both kidneys. A cyst on the right is larger measuring 1.34 cm in diameter. Minimal stranding is seen about both kidneys slightly more pronounced on the right. No bowel abnormality is detected. Imaging of the pelvis is degraded by right femoral nails and a left femoral arthroplasty. No free fluid is observed. No inguinal region abnormality is detected. Mild prostatic enlargement is noted. Degenerative changes are observed in the lumbar spine. There is evidence of a L 3 4 level laminectomy. IMPRESSION: 1. Cholecystectomy. 2. Minimal stranding is observed about both kidneys. There are also small simple cysts. This remains unchanged from the previous exam. 3. Bilateral hip orthopedic hardware Electronically signed by: Luigi Benitez MD 07/03/2017 4:47 PM CDT
[2017-07-03] MEDS ORDERED: SODIUM CHLORIDE 0.9% (FLUSH) 10 ML SYG IV PRN (16:52)
[2017-07-03] MEDS ORDERED: PANTOPRAZOLE SODIUM IV 40 MG VIAL IV SCH (17:00)
[2017-07-03] MEDS: IV SET AND CAP CHANGE INJ INJ SCH (17:01)
[2017-07-03] MEDS ORDERED: CARBIDOPA/LEVODOPA 25/100 1 TAB PO ONE (19:32)
[2017-07-03] MEDS ORDERED: LEVODOPA PO SCH (21:00)
[2017-07-03] MEDS ORDERED: CARBIDOPA PO SCH (21:00)
[2017-07-03] MEDS: TAMSULOSIN 0.4 MG CAP PO SCH (21:18)
[2017-07-03] MEDS: SUCRALFATE 1 GM TAB PO SCH (21:18)
[2017-07-03] MEDS: SODIUM CHLORIDE 0.9% (FLUSH) 10 ML SYG IV SCH (21:18)
[2017-07-03] MEDS: AMANTADINE HCL 100 MG CAP PO SCH (21:18)
[2017-07-03] MEDS: TEMAZEPAM 15 MG CAP PO PRN (21:57)
[2017-07-03] MEDS: ACETAMINOPHEN W/COD #3 TAB 1 EA TAB PO PRN (22:39)
[2017-07-04] MEDS: SUCRALFATE 1 GM TAB PO SCH ×4 (06:32→20:01)
[2017-07-04] MEDS: FUROSEMIDE 40 MG TAB PO SCH (08:41)
[2017-07-04] MEDS: POTASSIUM CHLORIDE 8 MEQ TAB PO SCH (08:41)
[2017-07-04] MEDS: SODIUM CHLORIDE 0.9% (FLUSH) 10 ML SYG IV SCH ×2 (08:42→20:03)
[2017-07-04] MEDS: ASPIRIN EC 81 MG TAB PO SCH (08:42)
[2017-07-04] MEDS: AMANTADINE HCL 100 MG CAP PO SCH ×2 (08:42→20:01)
[2017-07-04] MEDS ORDERED: PROPRANOLOL HCL 20 MG TAB ONE (08:50)
[2017-07-04] MEDS ORDERED: PROPRANOLOL HCL 60 MG PO SCH (09:00)
[2017-07-04] MEDS ORDERED: [UNRECOGNIZED DRUG - OTHER] PO SCH (09:00)
[2017-07-04] MEDS ORDERED: CARBIDOPA LEVODOPA ENTACAPONE PO SCH (09:00)
[2017-07-04] MEDS: PANTOPRAZOLE SODIUM TAB 40 MG PO SCH (11:16)
[2017-07-04] MEDS: PROPRANOLOL HCL 20 MG TAB PO SCH (11:29)
[2017-07-04] MEDS ORDERED: POTASSIUM CHLORIDE 20 MEQ TAB PO ONE (11:39)
--- NOTE | 2017-07-04 13:22 | PN ---
SUPERVISING PHYSICIAN: Mike Warner MD DATE: 07/04/17 SUBJECTIVE: The patient is lying in his hospital bed. He has a difficult time communicating, but does answer some simple yes/no questions. He denies any pain , shortness of breath, cough or chest pain. OBJECTIVE: VITAL SIGNS: Afebrile. Heart rate 73. Blood pressure 123/65. Respiratory rate 17. O2 saturation 98% on room air. RESPIRATORY: Essentially clear to auscultation bilaterally. CARDIAC: Regular rate and slightly irregular rhythm. GASTROINTESTINAL: Abdomen is soft, nondistended, nontender. Bowel sounds are positive. EXTREMITIES: No cyanosis, clubbing or edema. NEUROLOGIC: Awake and alert. Occasionally you can understand some simple phrases and he does answer some simple yes/no questions appropriately. He is alert to person and place only. LABORATORY: UA was basically within normal limits. WBCs have dropped to 4.6 with hemoglobin that has dropped 1.3 grams to 9.3 and hematocrit 28.4. Platelet count 231. Sodium 142, potassium 3.3, chloride 110, carbon dioxide 25 , BUN 16, creatinine 1.29. Bilirubin has gone up to 1.4. Alkaline phosphatase is slightly improved to 149. Chest CT shows: 1) Subacute nondisplaced fracture of the posterior lateral right ninth rib. 2) Emphysema with pulling nodules measuring up to 5 mm in the right lung with followup CT in one year. 3 ) Severe coronary artery atherosclerosis. His abdominopelvic CT shows 1) Cholecystectomy. 2) Minimal stranding observed about both kidneys. There are also small simple cysts. 3) Bilateral hip orthopedic hardware. All other labs and films have been reviewed via the EMR. ASSESSMENT: 1. Progressive weakness with loss of ability to walk with multiple falls, worsening over last [address] of the chest, there may be a new ninth rib fracture. 2. History of Parkinson's disease with worsening symptoms that may be contributing to #1. 3. Recent history of hospitalization 2 weeks ago for symptomatic anemia. Hemoglobin was 7.0. During that admission, he received 3 units of packed red blood cells. 4. Anemia with drop in hemoglobin overnight since admission of 1.3 grams from 10.6 to 9.3. 5. Chronic renal insufficiency with creatinine of 1.4 and baseline creatinine of 1.2 to 1.3. Today, it is 1.29. 6. Elevated bilirubin and alkaline phosphatase on admission with no history of elevated liver function tests. His bilirubin went up slightly today and his alkaline phosphatase slightly decreased today. 7. Hypertension. 8. Parkinson's disease. 9. Recent left wrist fracture followed by Dr. Palmer, orthopedic surgeon. PLAN: We will continue present supportive care. His potassium was slightly low this morning, so I have given him some oral replacement. I will repeat his lab in the morning. I am also going to check his direct and indirect bilirubin today. I will monitor his hemoglobin and hematocrit overnight as he has dropped 1.3 grams overnight and required 3 units of packed red blood cells less than 3 weeks ago. We will continue to monitor the patient closely and follow as needed. Dr. Warner is the collaborating physician and available for consultation. #[id number] [facility]
[2017-07-04] MEDS: TAMSULOSIN 0.4 MG CAP PO SCH (20:01)
[2017-07-04] MEDS: TEMAZEPAM 15 MG CAP PO PRN (23:00)
[2017-07-05] MEDS: ACETAMINOPHEN W/COD #3 TAB 1 EA TAB PO PRN ×2 (00:34→20:05)
[2017-07-05] MEDS: PANTOPRAZOLE SODIUM TAB 40 MG PO SCH (06:16)
[2017-07-05] MEDS: SUCRALFATE 1 GM TAB PO SCH ×4 (06:17→20:04)
[2017-07-05] MEDS: POTASSIUM CHLORIDE 8 MEQ TAB PO SCH (07:13)
[2017-07-05] MEDS: AMANTADINE HCL 100 MG CAP PO SCH ×2 (08:18→20:05)
[2017-07-05] MEDS: FUROSEMIDE 40 MG TAB PO SCH (08:18)
[2017-07-05] MEDS: SODIUM CHLORIDE 0.9% (FLUSH) 10 ML SYG IV SCH ×2 (08:18→20:07)
[2017-07-05] MEDS: CARBIDOPA LEVODOPA PO SCH (08:19)
[2017-07-05] MEDS: ASPIRIN EC 81 MG TAB PO SCH (08:19)
[2017-07-05] MEDS: PROPRANOLOL HCL 20 MG TAB PO SCH (08:19)
[2017-07-05] MEDS: [UNRECOGNIZED DRUG - OTHER] PO SCH (08:19)
[2017-07-05] MEDS ORDERED: POTASSIUM CHLORIDE 20 MEQ TAB PO ONE (09:03)
--- NOTE | 2017-07-05 14:20 | PN ---
DATE: 07/05/17 SUPERVISING PHYSICIAN: Mike Warner M.D. SUBJECTIVE: The patient is sitting up in his hospital bed. He is more alert and answers questions appropriately today, although at times he gets slightly confused. His family members are not in the room with him, but I discussed his discharge planning with him yesterday afternoon at length. They are very concerned that they cannot take care of him any longer and we discussed that most likely he will need to go to a rehab facility, and they agreed with that. OBJECTIVE: VITAL SIGNS: He is afebrile, heart rate 56, blood pressure 149/72, respiratory rate 18, O2 sat is 98% on room air. RESPIRATORY: Essentially clear to auscultation bilaterally. CARDIAC: Regular rate and rhythm. GASTROINTESTINAL: Abdomen is soft, nondistended, non-tender. Bowel sounds are positive. NEUROLOGIC: He is awake, alert and oriented to person and place. LABORATORY: Sodium 141, potassium 3.4, chloride 107, carbon dioxide 26, BUN 20 , creatinine 1.46. Bilirubin 1, alkaline phosphatase 141. WBCs are 5, hemoglobin and hematocrit have stabilized at 9.6 and 29.8, platelet count 251. All other labs and films have been reviewed via the EMR. ASSESSMENT: 1. Progressive weakness with loss of ability to walk with multiple falls, worsening over last [address] of the chest, there may be a new ninth rib fracture. 2. History of Parkinson's disease with worsening symptoms that may be contributing to #1. 3. Recent history of hospitalization 2 weeks ago for symptomatic anemia. Hemoglobin was 7.0. During that admission, he received 3 units of packed red blood cells. 4. Anemia with drop in hemoglobin overnight initially of 1.3 grams from 10.6 to 9.3. Today it is 9.6. 5. Chronic renal insufficiency with creatinine of 1.4 and baseline creatinine of 1.2 to 1.3. 6. Elevated bilirubin on admission that has now normalized and and elevated alkaline phosphatase with no history of elevated liver function tests. 7. Hypertension. 8. Parkinson's disease. 9. Recent left wrist fracture followed by Dr. Palmer, orthopedic surgeon. PLAN: We will continue present supportive care. At this time, he is continued in Observation but cannot be discharged home due to safety issues. We have tried multiple attempts at calling [facility] today for rehab evaluation and according to our Physical Therapy, they think he would be a very good candidate for rehab. [facility] has not returned our calls at this time, but we will continue to do so. Hopefully in the next day or so we can get an evaluation by them for transfer to their facility. His potassium was slightly low today and I gave him a dose of oral potassium. Will recheck his H&H and his BNP in the morning and plan for discharge to a rehab facility in the next day or so. Will continue to monitor him closely and follow as needed. Dr. Warner is the collaborating physician available for consultation. #[id number] [facility]ITAL[facility]
[2017-07-05] MEDS: TEMAZEPAM 15 MG CAP PO PRN (20:04)
[2017-07-05] MEDS: TAMSULOSIN 0.4 MG CAP PO SCH (20:04)
[2017-07-06] MEDS: PANTOPRAZOLE SODIUM TAB 40 MG PO SCH (06:26)
[2017-07-06] MEDS: SUCRALFATE 1 GM TAB PO SCH ×4 (06:27→20:44)
[2017-07-06] MEDS: POTASSIUM CHLORIDE 8 MEQ TAB PO SCH (07:43)
[2017-07-06] MEDS: AMANTADINE HCL 100 MG CAP PO SCH ×2 (08:08→20:44)
[2017-07-06] MEDS: [UNRECOGNIZED DRUG - OTHER] PO SCH (08:08)
[2017-07-06] MEDS: SODIUM CHLORIDE 0.9% (FLUSH) 10 ML SYG IV SCH ×2 (08:08→20:45)
[2017-07-06] MEDS: ASPIRIN EC 81 MG TAB PO SCH (08:08)
[2017-07-06] MEDS: PROPRANOLOL HCL 20 MG TAB PO SCH (08:08)
[2017-07-06] MEDS: CARBIDOPA LEVODOPA PO SCH (08:08)
[2017-07-06] MEDS: FUROSEMIDE 40 MG TAB PO SCH (08:08)
[2017-07-06] MEDS: POTASSIUM CHLORIDE 20 MEQ TAB PO SCH (11:19)
--- NOTE | 2017-07-06 12:02 | PN ---
DATE: 07/06/17 SUPERVISING PHYSICIAN: Mike Warner M.D. SUBJECTIVE: The patient is resting quietly in his bed in his hospital room. He awakens easily. Has no complaints of nausea, vomiting, diarrhea, chest pain , shortness of breath or generalized pain. OBJECTIVE: VITAL SIGNS: He is afebrile, heart rate 64, blood pressure 123/70, respiratory rate 17, O2 sat is 98% on room air. RESPIRATORY: Essentially clear to auscultation bilaterally. CARDIAC: Regular rate and rhythm. GASTROINTESTINAL: Abdomen is soft, nondistended, non-tender. Bowel sounds are positive. NEUROLOGIC: He is awake and alert. LABORATORY: Sodium 143, potassium 3.3, chloride 108, carbon dioxide 26, BUN 22 , creatinine 1.38. H&H has improved to 10.4 and 32.1. All other labs and films have been reviewed via the EMR. ASSESSMENT: 1. Progressive weakness with loss of ability to walk with multiple falls, worsening over last [address] of the chest, there may be a new ninth rib fracture. 2. History of Parkinson's disease with worsening symptoms that may be contributing to #1. 3. Recent history of hospitalization 2 weeks ago for symptomatic anemia. Hemoglobin was 7.0. During that admission, he received 3 units of packed red blood cells. 4. Anemia with drop in hemoglobin overnight initially of 1.3 grams from 10.6 to 9.3. Today hemoglobin is 10.4. 5. Chronic renal insufficiency with creatinine of 1.4 and baseline creatinine of 1.2 to 1.3. 6. Elevated bilirubin on admission that has now normalized and and elevated alkaline phosphatase with no history of elevated liver function tests. 7. Hypertension. 8. Parkinson's disease. 9. Recent left wrist fracture followed by Dr. Palmer, orthopedic surgeon. PLAN: We will continue present supportive care. He will continue on Observation for now. We did get in touch with [facility] and paperwork has been sent to them. I am not sure if he will be evaluated for admission today or tomorrow, but pending their evaluation he can be discharged to a rehab facility. Physical therapy feels like he would be a good candidate for rehab. I have spoken to his family and they understand the plan of care. I have discontinued his routine dose of potassium and have started 20 mEq daily. I will recheck his potassium in the morning. Otherwise plan for discharge tomorrow or the next day to rehab if evaluation goes as planned. Will continue to monitor him closely and follow as needed. Dr. Warner is the collaborating physician available for consultation. #[id number] [facility]
[2017-07-06] MEDS: IV SET AND CAP CHANGE INJ INJ SCH (16:55)
[2017-07-06] MEDS: TAMSULOSIN 0.4 MG CAP PO SCH (20:44)
[2017-07-06] MEDS: ACETAMINOPHEN W/COD #3 TAB 1 EA TAB PO PRN (20:46)
[2017-07-06] MEDS: TEMAZEPAM 15 MG CAP PO PRN (20:47)
[2017-07-07] MEDS: ACETAMINOPHEN W/COD #3 TAB 1 EA TAB PO PRN (01:17)
[2017-07-07] MEDS: SUCRALFATE 1 GM TAB PO SCH ×2 (06:34→11:48)
[2017-07-07] MEDS: PANTOPRAZOLE SODIUM TAB 40 MG PO SCH (06:34)
[2017-07-07] MEDS: POTASSIUM CHLORIDE 20 MEQ TAB PO SCH (07:30)
[2017-07-07] MEDS: FUROSEMIDE 40 MG TAB PO SCH (08:33)
[2017-07-07] MEDS: AMANTADINE HCL 100 MG CAP PO SCH (08:33)
[2017-07-07] MEDS: PROPRANOLOL HCL 20 MG TAB PO SCH (08:33)
[2017-07-07] MEDS: ASPIRIN EC 81 MG TAB PO SCH (08:34)
[2017-07-07] MEDS: CARBIDOPA LEVODOPA PO SCH (08:36)
[2017-07-07] MEDS: [UNRECOGNIZED DRUG - OTHER] PO SCH (08:36)
[2017-07-07] MEDS: SODIUM CHLORIDE 0.9% (FLUSH) 10 ML SYG IV SCH (08:37)
[2017-07-07 10:09] VITALS: BP 136/68; TEMP 97.1; O2SAT 97
--- NOTE | 2017-07-10 10:13 | DS ---
SUPERVISING PHYSICIAN: Valentin Powell MD DISCHARGE DIAGNOSIS: 1. Progressive weakness with loss of ability to walk with multiple falls, worsening over last [address] of the chest showing new ninth rib fracture. 2. History of Parkinson's disease with worsening symptoms, contributing to #1. 3. Recent hospitalization in the last 2 weeks for symptomatic anemia. Hemoglobin was initially 7.0, but after 3 units of packed red blood cells, stable on current admission with a hemoglobin of 10.6 and discharge hemoglobin stable at 10.4. 4. Chronic renal insufficiency with creatinine of 1.4 and baseline creatinine of 1.2 to 1.3. 5. Elevated bilirubin on admission, normalized, and an elevated alkaline phosphatase with no history of elevated liver function tests, uncertain etiology. 7. Hypertension. 8. Parkinson's disease. 9. Recent left wrist fracture followed by Dr. Palmer, orthopedic surgeon with current release for full weight-bearing. REASON FOR HOSPITALIZATION: Mr. Landon is a 77-year-old male patient who was admitted on 07/03/17. He is a male who was brought to the Emergency Room for progressive weakness noted by his family. In the past 3 weeks, he had fallen multiple times. He does have a history of Parkinson's and he has progressively worsened to the point that he cannot even walk. He was actually in the hospital 2 weeks previously for symptomatic anemia where his hemoglobin dropped as low as 7. He was given 3 units of packed red blood cells and was discharged home with home health. Since that time, he has progressively weakened. He lives with his daughter and he is unable to participate in any of his care. In the Emergency Room, his white count was found to be 9, hemoglobin as 10.6 with hematocrit 33.1. Chest x-ray showed a possible right basilar lung nodule but no additional abnormality to explain the patient's symptoms. He did fall 3 weeks ago and hit his left shoulder, and his left shoulder was x-rayed and shows a peripheral left clavicular deformity suggesting an old healed fracture but no acute fracture or dislocation. The patient was then admitted to the hospital for ongoing physical therapy and further evaluation. LABORATORY: Admission white count was 9,000. At discharge, it was 5,000. Hemoglobin at discharge was 10.4, hematocrit 32.1. Platelet count was within normal limits at 251,000. Differential was within normal limits with no shift. Chemistries on admission showed normal electrolytes. At discharge, he had a slightly low potassium of 3.3, but a normal sodium of 140 with BUN 22, creatinine 1.6, calcium 9.1. Liver functions did show some elevation of the alkaline phosphatase. At discharge it was 141. Bilirubin was 1.3 with an indirect 1.1. Magnesium normal at 2.1. Urinalysis was within normal limits except for just slightly elevated urobilinogen at 2.0. MICROBIOLOGY: No specimens submitted. RADIOLOGY: He had multiple x-rays in the Emergency Department prior to admission. Left shoulder x-ray per radiologic interpretation showed peripheral left clavicular deformity suggesting old healed fracture, but no acute fractures were noted. Chest x-ray on admission showed a possible right basilar lung nodule, but no additional abnormalities to explain the patient's symptoms. This was followed up with CT of the chest as well as the pelvis. Per radiologic interpretation of chest CT without contrast, showed subacute nondisplaced fracture of the posterior right ninth right with pulmonary nodule measuring 5 mm in the right lung with recommended followup in a year, severe coronary artery disease and other finding as noted above. Please see that report for full details. Abdominopelvic CT without contrast per radiologic interpretation showed cholecystectomy and minimal stranding observed about both kidneys with small simple cysts which remain unchanged from the previous exam and bilateral hip orthopedic hardware. HOSPITAL COURSE: Mr. Landon was admitted as noted above for ongoing weakness. He was initiated on fluids and his home medications resumed. He had evaluation by physical therapy and recommended he have extensive physical therapy as an outpatient. At that time, arrangements were made for him to have evaluation by [facility] who agreed to take the patient in transfer. PLAN: Mr. Landon was discharged on 07/07/17 to be transferred by private vehicle to [facility] rehab facility with Dr. Saucedo accepting for ongoing physical therapy. He was to resume his usual diet. Activity to be as per physical therapy. All medications were resumed as previous to admission. Condition at discharge was stable and improved. [facility][id number] [facility]
== END 2017-07-07 12:50 ==
LOC: ER 10:41 → MS 13:28
PROVIDERS: ADMIT Nurse Practitioner Acute Care; ATTEND Nurse Practitioner Family
DX: G20 Parkinson's disease (principal); R53.1 Weakness; R26.2 Difficulty in walking, not elsewhere classified; D64.9 Anemia, unspecified; I12.9 Hypertensive chronic kidney disease with stage 1 through stage 4 chronic kidney disease, or unspecified chronic kidney disease; N18.9 Chronic kidney disease, unspecified; E80.6 Other disorders of bilirubin metabolism; R74.8 Abnormal levels of other serum enzymes; M25.512 Pain in left shoulder; R91.1 Solitary pulmonary nodule; I25.10 Atherosclerotic heart disease of native coronary artery without angina pectoris; I48.0 Paroxysmal atrial fibrillation; E78.5 Hyperlipidemia, unspecified; J44.9 Chronic obstructive pulmonary disease, unspecified; Z91.81 History of falling; Z79.82 Long term (current) use of aspirin; Z79.899 Other long term (current) drug therapy; Z88.2 Allergy status to sulfonamides; Z87.81 Personal history of (healed) traumatic fracture
CPT/HCPCS: 36415 ×5; 71045; 71250; 73030; 74176; 80048 ×2; 80053 ×3; 81001; 82247; 82248; 83735 ×4; 85014; 85018; 85025 ×3; 93005; 94760 ×16; 96361; 96374; 97116 ×2; 97162; 97530 ×4; 99284; G0378; G8978; G8979; J7030

== ENCOUNTER → 2017-07-22 | Outpatient (CLI) | payer MEDICARE | END | disposition home or self-care (01) | LOC: BFHH 12:41 | PROVIDERS: ATTEND Family Medicine | DX: R30.9 Painful micturition, unspecified (principal) ==